=== PATIENT | male | born 1970 | race African-American/Black ===

== ENCOUNTER 2023-01-11 11:38 | Emergency (ER) | payer OTHER ==
--- OUTSIDE RECORDS SUMMARY | 2023-01-11 11:43 | XMS REPORT | Continuity of Care Document ---
:1970 Author Organization [facility] t Address [address] [place] [address] Care Team Providers Name Role Phone Unavailable Unavailable Unavailable Payers Payer Name Policy Type Policy Number Effective Date Expiration Date S ource Problems This patient has no known problems. Allergies, Adverse Reactions, Alerts Allergy Allergy Status Severity Reaction(s) Onset Inactive Treating Comm ents Source Name Type Date Date Clinician No Known DA Active U [facility] Allergie 01-29 Clear s 00:00: [place] 00 [facility] Medications This patient has no known medications. Procedures This patient has no known procedures. Results Test Description Test Time Test Comments Results Result Comments Source CBC W/AUTO DIFF 2019-02-02 07:52:00 Test Item Value Reference Range Interpretation Comme nts WHITE BLOOD CELL (test code = WBC) 14.88 x10 3/uL 4.5-11.0 H RED BLOOD CELL (test code = RBC) 4.91 x10 6/uL 4.00-5.60 N HEMOGLOBIN (test code = HGB) 13.0 g/dL 12.5-16.9 N HEMATOCRIT (test code = HCT) 41.7 % 37.5-50.7 N MEAN CELL VOLUME (test code = MCV) 84.9 fL 81.0-99.0 N MEAN CELL HGB (test code = MCH) 26.5 pg 27.0-33.0 L MEAN CELL HGB CONCETRATION (test code = MCHC) 31.2 g/dL 33.0-37. 0 L RED CELL DISTRIBUTION WIDTH CV (test code = RDW) 14.3 % 11.5- 14.5 N RED CELL DISTRIBUTION WIDTH SD (test code = RDW-SD) 44.1 fL 37 .0-54.0 N PLATELET COUNT (test code = PLT) 405 x10 3/uL 150-400 H MEAN PLATELET VOLUME (test code = MPV) 10.4 fL 7.0-9.0 H NEUTROPHIL % (test code = NT%) 72.4 % 56.0-77.0 N IMMATURE GRANULOCYTE % (test code = IG%) 0.7 % 0.0-2.0 N LYMPHOCYTE % (test code = LY%) 15.9 % 14.0-32.0 N MONOCYTE % (test code = MO%) 9.1 % 4.8-9.0 H EOSINOPHIL % (test code = EO%) 1.5 % 0.3-3.7 N BASOPHIL % (test code = BA%) 0.4 % 0.0-2.0 N NUCLEATED RBC % (test code = NRBC%) 0.0 % 0-0 N NEUTROPHIL # (test code = NT#) 10.75 x10 3/uL 2.0-7.6 H IMMATURE GRANULOCYTE # (test code = IG#) 0.11 x10 3/uL 0.00-0.03 H LYMPHOCYTE # (test code = LY#) 2.37 x10 3/uL 1.0-3.8 N MONOCYTE # (test code = MO#) 1.36 x10 3/uL 0.1-0.8 H EOSINOPHIL # (test code = EO#) 0.23 x10 3/uL 0.0-0.2 H BASOPHIL # (test code = BA#) 0.06 x10 3/uL 0.0-0.2 N NUCLEATED RBC # (test code = NRBC#) 0.00 x10 3/uL 0.0-0.1 N MANUAL DIFF REQUIRED (test code = MDIFF) NO COMMENTS: Daily while on HeparinCOAGULATION TIME [id number] 12:19:00 Test Item Value Reference Range Interpretation Comments COAGULATION TIME ACTIVATED (test 678 SECONDS 105-167 H code = ACT) COAGULATION TIME [id number] 12:19:00 Test Item Value Reference Range Interpretation Comments COAGULATION TIME ACTIVATED (test 177 SECONDS 105-167 H code = ACT) B-TYPE NATRIURETIC [id number] 10:01:00 Test Item Value Reference Range Interpretation Comments B-TYPE NATRIURETIC PEPTIDE (test 588.2 PG/ML 0-100 H code = BNP) PROTHROMBIN [id number] 06:18:00 Test Item Value Reference Range Interpretation Comments PROTHROMBIN TIME 15.6 SECONDS 9.3-12.9 H PATIENT (test code = PTP) INTERNATIONAL NORMAL 1.4 0.8-1.2 H TARGET INR BY RATIO (test code = INDICATIO N Indication INR) INR1. Prophylax is of venous thrombos is 2.0 - 3.0 (orthoped ic surgery), Proph ylaxis of venous throm bosis (other than hig h-risk surgery), Treat ment of Deep Vein Thrombosis/Pulm onary Embolism, Preve ntion of systemic emb olism - Tissue heart va lves, Acute Myocardia l Infarction (to prevent systemic emboli sm), Valvular heart disease, Atrial Fibrillation, Bileaflet mecha nical valve in aortic position.2. Mec hanical prosthetic valv es (high risk), 2. 5 - 3.5 Presence of Lup us Anticoagulant o r Antiphospholipi d Antibodies, Pre vention of systemic emb olism - Acute Myocardia l Infarction (to prevent recurrent infar ct). CBC W/AUTO [id number] 06:04:00 Test Item Value Reference Range Interpretation Comments WHITE BLOOD CELL (test code = 14.26 x10 3/uL 4.5-11.0 H WBC) RED BLOOD CELL (test code = 4.94 x10 6/uL 4.00-5.60 N RBC) HEMOGLOBIN (test code = HGB) 13.1 g/dL 12.5-16.9 N HEMATOCRIT (test code = HCT) 41.4 % 37.5-50.7 N MEAN CELL VOLUME (test code = 83.8 fL 81.0-99.0 N MCV) MEAN CELL HGB (test code = 26.5 pg 27.0-33.0 L MCH) MEAN CELL HGB CONCETRATION 31.6 g/dL 33.0-37.0 L (test code = MCHC) RED CELL DISTRIBUTION WIDTH CV 14.6 % 11.5-14.5 H (test code = RDW) RED CELL DISTRIBUTION WIDTH SD 44.4 fL 37.0-54.0 N (test code = RDW-SD) PLATELET COUNT (test code = 383 x10 3/uL 150-400 N PLT) MEAN PLATELET VOLUME (test 10.5 fL 7.0-9.0 H code = MPV) NEUTROPHIL % (test code = NT%) 75.5 % 56.0-77.0 N IMMATURE GRANULOCYTE % (test 0.6 % 0.0-2.0 N code = IG%) LYMPHOCYTE % (test code = LY%) 13.5 % 14.0-32.0 L MONOCYTE % (test code = MO%) 8.3 % 4.8-9.0 N EOSINOPHIL % (test code = EO%) 1.8 % 0.3-3.7 N BASOPHIL % (test code = BA%) 0.3 % 0.0-2.0 N NUCLEATED RBC % (test code = 0.0 % 0-0 N NRBC%) NEUTROPHIL # (test code = NT#) 10.78 x10 3/uL 2.0-7.6 H IMMATURE GRANULOCYTE # (test 0.08 x10 3/uL 0.00-0.03 H code = IG#) LYMPHOCYTE # (test code = LY#) 1.92 x10 3/uL 1.0-3.8 N MONOCYTE # (test code = MO#) 1.19 x10 3/uL 0.1-0.8 H EOSINOPHIL # (test code = EO#) 0.25 x10 3/uL 0.0-0.2 H BASOPHIL # (test code = BA#) 0.04 x10 3/uL 0.0-0.2 N NUCLEATED RBC # (test code = 0.00 x10 3/uL 0.0-0.1 N NRBC#) MANUAL DIFF REQUIRED (test NO code = MDIFF) COMMENTS: Daily while on HeparinCOMPREHENSIVE METABOLIC [id number] 06:04:00 Test Item Value Reference Range Interpretation Comments SODIUM (test code = NA) 135 mEq/L 134-147 N POTASSIUM (test code = 3.4 mEq/L 3.4-5.0 N K) CHLORIDE (test code = 98 mEq/L 100-108 L CL) CARBON DIOXIDE (test 28 mEq/L 21-33 N code = CO2) ANION GAP (test code = 12 0-20 N GAP) GLUCOSE (test code = 103 mg/dL 70-110 N GLU) BLOOD UREA NITROGEN 30 mg/dL 7-18 H (test code = BUN) GLOMERULAR FILTRATION 52.5 95-105 L Units of measure = RATE (test code = GFR) ml/mi n/1.73 m2 CREATININE (test code = 1.7 mg/dL 0.6-1.3 H CREAT) TOTAL PROTEIN (test 7.6 g/dL 6.4-8.2 code = PROT) ALBUMIN (test code = 2.00 g/dL 3.4-5.0 L ALB) CALCIUM (test code = 8.9 mg/dL 8.0-10.5 N CA) BILIRUBIN TOTAL (test 0.70 mg/dL 0.0-1.0 code = BILT) SGOT/AST (test code = 40 IUnit/L 15-37 H AST) SGPT/ALT (test code = 41 IUnit/L 15-65 N ALT) ALKALINE PHOSPHATASE 193 IUnit/L 20-125 H TOTAL (test code = ALKP) [id number] 06:04:00 Test Item Value Reference Range Interpretation Comments MAGNESIUM (test code = MAG) 2.50 mg/dL 1.8-2.4 H BASIC METABOLIC [id number] 18:52:00 Test Item Value Reference Range Interpretation Comments SODIUM (test code = 133 mEq/L 134-147 L NA) POTASSIUM (test code = 3.6 mEq/L 3.4-5.0 N SPECI MEN SLIGHTLY K) HEMOLYZED.Resul ts known to be adv ersely affected by hem olysis are: Potassium Magnesium LDH Phosphorus CHLORIDE (test code = 97 mEq/L 100-108 L CL) CARBON DIOXIDE (test 27 mEq/L 21-33 N code = CO2) ANION GAP (test code = 13 0-20 N GAP) GLUCOSE (test code = 94 mg/dL 70-110 N GLU) BLOOD UREA NITROGEN 32 mg/dL 7-18 H (test code = BUN) GLOMERULAR FILTRATION 43.6 95-105 L Units of measure = RATE (test code = GFR) ml/mi n/1.73 m2 CREATININE (test code 2.0 mg/dL 0.6-1.3 H = CREAT) CALCIUM (test code = 9.4 mg/dL 8.0-10.5 N CA) - DUP VEIN [id number] 08:40:00 Name: MARY FRAZIER [facility] [place] : 1970 Age/S: 48 / M [address] [place] [address] Unit #: [id number] Loc: [place] [address] Phys: Lucinda Kilgore MD Acct: [id number] Dis Date: Status:ADM IN PHONE #: [phone] Exam Date: 01/31/2019812 FAX #: [phone] Reason: DVT EXAMS: CPT CODE: [id number] [facility] VEIN JAVIER [id number] PROCEDURE: BILATERAL LOWER EXTREMITY VENOUS ULTRASOUND INDICATION:Chest pain, elevated d-dimer COMPARISON: None. TECHNIQUE: Sonographic evaluation of the bilateral lower extremity veins was performed using high resolution B-mode, pulse and color Doppler imaging. FINDINGS: RIGHT: The common femoral, femoral, popliteal and visualized calf veins are patent. Normal venous waveforms. The saphenofemoral junction is unremarkable. LEFT: The common femoral, femoral, popliteal and visualized calf veins are patent. Normal venous waveforms. The saphenofemoral junction is unremarkable. IMPRESSION: No deep venous thrombosis. SL:01 at 0840 Reported and signed by: Raymon Paulson M.D. CC: Lucinda Kilgore MD; Meghna Au MD Technologist: Shayy Haynes RDMS(Fransisco) Trnscb Date/Time: 01/31/2019 (0840) tMELODY Orig Print D/T: S: 01/31/2019 (0843) Probe: PAGE 1 Signed Report- XR CHEST 1 [id number] 07:53:00 FAX: Rolanda Phan MD [phone] [place]: St: ADM FAX: Meghna Au [phone] ------ [facility] [place] : 1970 Age/S: 48/M [address] [place] [address] Blvd Unit #: [id number] Loc: [address] [place] [address] Phys: Rolanda Ramirez MD Acct: [id number] Dis Date: Status: ADM IN PHONE #: [phone] Exam Date: 01/31/2019 075 FAX #: [phone] Reason: R/O PNA EXAMS: CPT CODE: [id number] XR CHEST 1V 86790 CHEST, SINGLE VIEW HISTORY: Myocardial infarction Comparison made to prior chest x-ray dated 01/30/19. FINDINGS: The lungs are clear. Heart is enlarged, stable. Pulmonary vascularity is stable. No new pleural fluid. IMPRESSION: Stable cardiomegaly. SL:01 at 0753 Reported and signed by: Raymon Paulson M.D. CC: Rolanda Ramirez MD; Meghna Au MD Technologist: RT Haider(R) Trnscrd Date/Time/By: 01/31/2019 (0753) : By: Beryl Orig Print D/T: S: 01/31/2019 (0756) PAGE 1 Signed ReportUR PROTEIN [id number] 07:14:00 Test Item Value Reference Range Interpretation Comments UR PROTEIN 25 mg/dL Note: C hange in RANDOM (test UNITS of MEASUR EMENT. code = PROTU) The Ref erence Range and Method Perf ormance specificationsh ave not been establishe d for this fluid. The test resultshould be correlated into the clinic al context forinterpretati on. UR PROTEIN 12HR 437 MG/12 HR Please note this is a 12 (test code = hour urine cayden ection. No [id number]) Reference Range s have been established for 12 hour urinecollection for this test. UR VOLUME (test 1750 mL code = VOL) UR PROTEIN [id number] 06:56:00 Test Item Value Reference Range Interpretation Comments UR PROTEIN RANDOM (test code = PROTU) mg/dL UR VOLUME (test code = VOL) 1750 mL BASIC METABOLIC [id number] 06:43:00 Test Item Value Reference Range Interpretation Comments SODIUM (test code = NA) 135 mEq/L 134-147 N POTASSIUM (test code = 3.6 mEq/L 3.4-5.0 N K) CHLORIDE (test code = 102 mEq/L 100-108 N CL) CARBON DIOXIDE (test 25 mEq/L 21-33 N code = CO2) ANION GAP (test code = 12 0-20 N GAP) GLUCOSE (test code = 100 mg/dL 70-110 N GLU) BLOOD UREA NITROGEN 27 mg/dL 7-18 H (test code = BUN) GLOMERULAR FILTRATION 46.2 95-105 L Units of measure = RATE (test code = GFR) ml/mi n/1.73 m2 CREATININE (test code = 1.9 mg/dL 0.6-1.3 H CREAT) CALCIUM (test code = 8.9 mg/dL 8.0-10.5 N CA) [id number] 06:43:00 Test Item Value Reference Range Interpretation Comments PHOSPHOROUS (test code = PHOS) 2.7 mg/dL 2.5-4.9 N [id number] 06:43:00 Test Item Value Reference Range Interpretation Comments MAGNESIUM (test code = MAG) 2.50 mg/dL 1.8-2.4 H CBC W/AUTO [id number] 06:28:00 Test Item Value Reference Range Interpretation Comments WHITE BLOOD CELL (test code = 18.18 x10 3/uL 4.5-11.0 H WBC) RED BLOOD CELL (test code = 4.79 x10 6/uL 4.00-5.60 N RBC) HEMOGLOBIN (test code = HGB) 12.8 g/dL 12.5-16.9 N HEMATOCRIT (test code = HCT) 40.0 % 37.5-50.7 N MEAN CELL VOLUME (test code = 83.5 fL 81.0-99.0 N MCV) MEAN CELL HGB (test code = 26.7 pg 27.0-33.0 L MCH) MEAN CELL HGB CONCETRATION 32.0 g/dL 33.0-37.0 L (test code = MCHC) RED CELL DISTRIBUTION WIDTH CV 14.6 % 11.5-14.5 H (test code = RDW) RED CELL DISTRIBUTION WIDTH SD 44.7 fL 37.0-54.0 N (test code = RDW-SD) PLATELET COUNT (test code = 357 x10 3/uL 150-400 N PLT) MEAN PLATELET VOLUME (test 10.8 fL 7.0-9.0 H code = MPV) NEUTROPHIL % (test code = NT%) 78.4 % 56.0-77.0 H IMMATURE GRANULOCYTE % (test 2.1 % 0.0-2.0 H code = IG%) LYMPHOCYTE % (test code = LY%) 10.6 % 14.0-32.0 L MONOCYTE % (test code = MO%) 8.1 % 4.8-9.0 N EOSINOPHIL % (test code = EO%) 0.6 % 0.3-3.7 N BASOPHIL % (test code = BA%) 0.2 % 0.0-2.0 N NUCLEATED RBC % (test code = 0.0 % 0-0 N NRBC%) NEUTROPHIL # (test code = NT#) 14.26 x10 3/uL 2.0-7.6 H IMMATURE GRANULOCYTE # (test 0.39 x10 3/uL 0.00-0.03 H code = IG#) LYMPHOCYTE # (test code = LY#) 1.92 x10 3/uL 1.0-3.8 N MONOCYTE # (test code = MO#) 1.47 x10 3/uL 0.1-0.8 H EOSINOPHIL # (test code = EO#) 0.10 x10 3/uL 0.0-0.2 N BASOPHIL # (test code = BA#) 0.04 x10 3/uL 0.0-0.2 N NUCLEATED RBC # (test code = 0.00 x10 3/uL 0.0-0.1 N NRBC#) MANUAL DIFF REQUIRED (test NO code = MDIFF) PROCALCITONIN (PCT)2019-01-30 18:23:00 Test Item Value Reference Range Interpretation Comments PROCALCITONIN (PCT) 1.37 ng/mL 0.00-0.05 H PROCALCI TONIN (PCT) (test code = PROCAL) NORMAL RANGE (ADULT): <0.05 NG/ML. * a concentration < 0.5 ng/mL represent s a low risk of severe sepsis and/or septic s hock.* a concentration > 2 ng/mL represents a hi gh risk of severe sepsi s and/or septic shock.Neverthel ess, concentrations <0.5 ng/mL do not ex clude aninfection, on account of localized in fections (withoutsystemi c signs) which can be as sociated with such lowconcentratio ns, or a systemic infect ion in its initialstag es (< 6 hours). Further more, increased procalcitoninca n occur without infecti on. PCT concentrations between 0.5and 2.0 ng/m L should be interpreted taking into account thepatient's hi story. It is recommend ed to retest PCT with in6-24 hours if any concentrations <2 ng/mL are obtained. URINALYSIS [id number] 16:16:00 Test Item Value Reference Range Interpretation Comments UA COLOR (test code = COLU) ANU YEL/STRAW A UA APPEARANCE (test code = APPU) CLOUDY CLEAR A UA GLUCOSE DIPSTICK (test code = NEGATIVE NEGATIVE DGLUU) UA BILIRUBIN DIPSTICK (test code NEGATIVE NEGATIVE = BILU) UA KETONE DIPSTICK (test code = NEGATIVE NEGATIVE KETU) UA SPECIFIC GRAVITY (test code = 1.031 1.005-1.030 H SGU) UA BLOOD DIPSTICK (test code = 1+ NEGATIVE A TIFFANIE) UA PH DIPSTICK (test code = DIANA) 5.0 5.0-7.0 N UA PROTEIN DIPSTICK (test code = 1+ NEGATIVE A PROU) UA UROBILINIOGEN DIPSTICK (test 4.0 mg/dL 0.2-1.0 A code = URO) UA NITRITE DIPSTICK (test code = NEGATIVE NEGATIVE HENRY) UA LEUKOCYTE ESTERASE DIPSTICK NEGATIVE NEGATIVE (test code = LEUU) UA WBC (test code = WBCU) 4-9 WBC/HPF 0-3 A UA RBC (test code = RBCU) 4-10 RBC/HPF 0-3 UA BACTERIA (test code = BACU) 1+ /HPF NONE SEEN A UA SQUAMOUS CELLS (test code = 0-5 /HPF NONE SEEN SQU) UA GRANULAR CAST (test code = 3-5 /LPF NONE GRANU) UA MUCUS (test code = MUCU) 2+ /LPF NONE SEEN A UA AMORPHOUS SEDIMENT (test code TRACE /HPF NONE = AMORU) UA CULT [id number] 16:16:00 Test Item Value Reference Range Interpretation Comments UA CULTURE NEEDED? NO, WBC<10 Culture Chk Criteria not met, (test code = Criteria Urine Culture UACULT) cancelled. - US RETROPERITONEAL [id number] 15:32:00 Name: MARY FRAZIER [facility] : 1970 Age/S: 48 / M [address] [place] [address] Bl Unit #: [id number] Loc: [place] [address] Phys: Lucinda Kilgore MD Acct: [id number] Dis Date: Status:ADM IN PHONE #: [phone] Exam Date: 01/30/2019 1457 FAX #: [phone] Reason: kideny EXAMS: CPT CODE: [id number] [place] RETROPERITONEAL COM 28425 PROCEDURE: RENAL ULTRASOUND INDICATION: Acute kidney injury. COMPARISON: None. TECHNIQUE: Sonographic evaluation of the kidneys and urinary bladder was performed. FINDINGS: KIDNEYS: The right kidney measures 9.8 cm in length. Normal contour and parenchymal echogenicity. There is no hydronephrosis, nephrolithiasis, mass lesion or perinephric collection. The left kidney measures 9.6 cm in length. Normal contour and parenchymal echogenicity. There is no hy dronephrosis, nephrolithiasis, mass lesion or perinephric collection. BLADDER: Almost empty but otherwise normal in appearance. IMPRESSION: Normal renal ultrasound. END REPORT [id number] at 1532 Reported and signed by: Gerard Casillas M.D. CC: Lucinda Kilgore MD; Meghna Au MD Technologist: Holli Chahal RDMS(OB)(BR) Trnscb Date/Time: 01/30/2019 (1532) t.SDR.RTB Orig Print D/T: S: 01/30/2019 (2288) Probe: PAGE 1 Signed ReportUR PROTEIN/CREATININE [id number] 15:26:00 Test Item Value Reference Range Interpretation Comments UR PROTEIN RANDOM 147 mg/dL No te: Change in (test code = UNITS of MEASUR EMENT. PROTU) The Refe rence Range and Metho d Performance specificationsh ave not been establishe d for this fluid. The test resultshould be correlated into the clinical contex t forinterpretati on. UR CREATININE 288.0 mg/dL The Reference Range and RANDOM (test code Method Per formance = CREATU) specificationsh ave not been establishe d for this fluid. The test resultshould be correlated into the clinical contex t forinterpretati on. PROTEIN/CREATININ 0.51 E RATIO (test code = P/CRATIO) [id number] 15:06:00 Test Item Value Reference Range Interpretation Comments D-DIMER (test 2178 ng/mlFEU <=500 HH THROMBOSIS A ND/OR code = PULMONARY EMBOL ISM AND THE DDIMER) CLINICAL CUT- O FF VALUE FOR EXCLUSION (500 ng/mL FEU) OF THESE CONDIT IONSIS VALIDATED BY E PATIENT SERVICE ASSOCIATE OF THE METHOD. A NEGATIVE D-DI BLAIRE RESULT WHEN COMBINED W ITH A CLINICALASSESSM ENT OF LOW PRETEST PROBABI LITY HAS BEEN SHOWN TO H AVEA HIGH NEGATIVE PREDIC TIVE VALUE OF DVT OR PE. D -DIMER VALUES >500 ng/ mL FEU ARE NOT DIAGNOSTIC FOR DVT, PEor DIC WITHOU T OTHER CONFIRMATORY TE STS AND APPROPRIATECLIN ICAL EUALUATIONS. DRUGS OF ABUSE SCREEN [id number] 15:01:00 Test Item Value Reference Range Interpretation Comments URN COCAINE (test code NEGATIVE NEGATIVE = COCAURN) URN CANNABINOIDS (test NEGATIVE NEGATIVE code = CANNABURN) URN AMPHETAMINE (test NEGATIVE NEGATIVE code = AMPHETURN) URN BARBITURATE (test NEGATIVE NEGATIVE code = BARBITURN) URN BENZODIAZEPINE NEGATIVE NEGATIVE Cut-off v alue:200 (test code = BENZOURN) ng/mL URN OPIATES (test code NEGATIVE NEGATIVE Cut-o ff value:2000 = OPIATURN) ng/mL URN PHENCYCLIDINE (PCP) NEGATIVE NEGATIVE Cuto ffs:Barbiturates (test code = PHENCURN) 200 ng/mLBenzodiaze pines 200 ng/mLTHC Cannabinoids 50 ng/mLOpiates(Mo rphine) 2000 ng/mLAmphe tamine 1000 ng/mLCocai ne 300 ng/mLPCP phency clidine 25 ng/mL Unconf irmed screening resul ts shouldnot be us ed for non-medical pur poses. - XR CHEST 1 [id number] 12:52:00 FAX: Rolanda Phan MD [phone] [place]: St: ADM FAX: Meghna Au [phone] ------ Name: MARY FRAZIER [facility] : 1970 Age/S: 48/M [address] [place] [address] Blvd Unit #: [id number] Loc: [address] [place] [address] Phys: Rolanda Ramirez MD Acct: [id number] Dis Date: Status: ADM IN PHONE #: [phone] Exam Date: 01/30/2019 1247 FAX #: [phone] Reason: BLOOD TINGED SPUTUM EXAMS: CPT CODE: [id number] CHEST 1 V 31124 1 VIEW CXR. PORTABLE EXAM 11:42 AM HISTORY: Blood tinged sputum. COMPARISON: 01/29/2019 chest x-ray. The lungs are clear with normal pulmonary vasculature. Cardiomediastinal silhouette normal. No pleural abnormality. Bony thorax intact. IMPRESSION: Normal exam. END OF IMPRESSION SL: [id number] at 1252 Reported and signed by: Gerard Casillas M.D. CC: Rolanda Ramirez MD; Meghna Au MD Technologist: RT Man(Blake) Trnscrd Date/Time/By: 01/30/2019 (7931) : By: Elissa Orig Print D/T: S: 01/30/2019 (4305) PAGE 1 Signed [id number] 2019-01-30 06:11:00 Test Item Value Reference Range Interpretation Comments HGBA1C% (test code = HGBA1C%) 5.9 %A1C 4.8-6.0 N COMPREHENSIVE METABOLIC [id number] 06:02:00 Test Item Value Reference Range Interpretation Comments SODIUM (test code = NA) 136 mEq/L 134-147 N POTASSIUM (test code = 4.2 mEq/L 3.4-5.0 N K) CHLORIDE (test code = 105 mEq/L 100-108 N CL) CARBON DIOXIDE (test 24 mEq/L 21-33 N code = CO2) ANION GAP (test code = 11 0-20 N GAP) GLUCOSE (test code = 115 mg/dL 70-110 H GLU) BLOOD UREA NITROGEN 22 mg/dL 7-18 H (test code = BUN) GLOMERULAR FILTRATION 56.3 95-105 L Units of measure = RATE (test code = GFR) ml/mi n/1.73 m2 CREATININE (test code = 1.6 mg/dL 0.6-1.3 H CREAT) TOTAL PROTEIN (test 6.6 g/dL 6.4-8.2 N code = PROT) ALBUMIN (test code = 2.00 g/dL 3.4-5.0 L ALB) CALCIUM (test code = 8.2 mg/dL 8.0-10.5 N CA) BILIRUBIN TOTAL (test 1.00 mg/dL 0.0-1.0 N code = BILT) SGOT/AST (test code = 27 IUnit/L 15-37 N AST) SGPT/ALT (test code = 32 IUnit/L 15-65 N ALT) ALKALINE PHOSPHATASE 162 IUnit/L 20-125 H TOTAL (test code = ALKP) LIPID PROFILE (CORONARY RISK)2019-01-30 06:02:00 Test Item Value Reference Range Interpretation Comments TRIGLYCERIDES (test 82 mg/dL 40-150 N code = TRIG) CHOLESTEROL (test 133 mg/dL <200 code = CHOL) CHOLESTEROL/HDL 4.93 RATIO 3.43-4.97 N RISK ASSOCIA FARHAT WITH RATIO (test code = CHOL/HDL RATIOS: RISK CHOLHDL) MALE FEMALE1/2 AVERAGE 3.43 3.27AVERAG E 4.97 4.442X AVERAGE 9.55 7.053X AVERAGE 23.39 11.04 NOTE THAT THE REFERENCE VALUE IS RELATEDTO RISK LEVELS RECOMMENDED BY THE NATL.HEART, MAYRA G, AND BLOOD INST. HDL CHOLESTEROL 27.0 mg/dL 32-72 L (test code = HDL) LIPOPROTEIN LDL 100 mg/dL 0-100 N <100 OPTIMAL 100-129 (test code = LDL) NEAR OPTIM AL/ABOVE [id number] 89 HIGH>ST=351 CAROLYN Y HIGH*Guidelines provided by the National Choles terol EducationProgra m Adult Treatment Panel III [id number] 06:02:00 Test Item Value Reference Range Interpretation Comments PHOSPHOROUS (test code = PHOS) 3.2 mg/dL 2.5-4.9 N [id number] 06:02:00 Test Item Value Reference Range Interpretation Comments MAGNESIUM (test code = MAG) 2.50 mg/dL 1.8-2.4 H T4 [id number] 06:02:00 Test Item Value Reference Range Interpretation Comments T4 FREE (test code = T4F) 1.1 ng/dL 0.77-1.61 N THYROID STIMULATING [id number] 06:02:00 Test Item Value Reference Range Interpretation Comments THYROID STIMULATING 0.55 0.42-5.47 N Results in HORMONE (test code = TSH) mi lli-International Units/mL CBC W/AUTO [id number] 05:38:00 Test Item Value Reference Range Interpretation Comments WHITE BLOOD CELL (test code = 19.04 x10 3/uL 4.5-11.0 H WBC) RED BLOOD CELL (test code = 4.41 x10 6/uL 4.00-5.60 N RBC) HEMOGLOBIN (test code = HGB) 11.8 g/dL 12.5-16.9 L HEMATOCRIT (test code = HCT) 37.8 % 37.5-50.7 N MEAN CELL VOLUME (test code = 85.7 fL 81.0-99.0 N MCV) MEAN CELL HGB (test code = 26.8 pg 27.0-33.0 L MCH) MEAN CELL HGB CONCETRATION 31.2 g/dL 33.0-37.0 L (test code = MCHC) RED CELL DISTRIBUTION WIDTH CV 14.7 % 11.5-14.5 H (test code = RDW) RED CELL DISTRIBUTION WIDTH SD 46.4 fL 37.0-54.0 N (test code = RDW-SD) PLATELET COUNT (test code = 296 x10 3/uL 150-400 N PLT) MEAN PLATELET VOLUME (test 10.6 fL 7.0-9.0 H code = MPV) NEUTROPHIL % (test code = NT%) 78.3 % 56.0-77.0 H IMMATURE GRANULOCYTE % (test 0.8 % 0.0-2.0 N code = IG%) LYMPHOCYTE % (test code = LY%) 10.9 % 14.0-32.0 L MONOCYTE % (test code = MO%) 9.6 % 4.8-9.0 H EOSINOPHIL % (test code = EO%) 0.1 % 0.3-3.7 L BASOPHIL % (test code = BA%) 0.3 % 0.0-2.0 N NUCLEATED RBC % (test code = 0.0 % 0-0 N NRBC%) NEUTROPHIL # (test code = NT#) 14.91 x10 3/uL 2.0-7.6 H IMMATURE GRANULOCYTE # (test 0.16 x10 3/uL 0.00-0.03 H code = IG#) LYMPHOCYTE # (test code = LY#) 2.07 x10 3/uL 1.0-3.8 N MONOCYTE # (test code = MO#) 1.83 x10 3/uL 0.1-0.8 H EOSINOPHIL # (test code = EO#) 0.02 x10 3/uL 0.0-0.2 N BASOPHIL # (test code = BA#) 0.05 x10 3/uL 0.0-0.2 N NUCLEATED RBC # (test code = 0.00 x10 3/uL 0.0-0.1 N NRBC#) MANUAL DIFF REQUIRED (test NO code = MDIFF) COMMENTS: To be done morning of Heart CathVITAMIN [id number] 23:55:00 Test Item Value Reference Range Interpretation Comments VITAMIN D 25-HYDROXY (test code = 10.1 ng/mL 30-100 L VITD25) CPK-MB [id number] 22:46:00 Test Item Value Reference Range Interpretation Comments CREATINE KINASE 108 35-232 N Result is in (CK) (test code = INTERNATIO NAL CK) UNITS/LITER CKMB (test code = < 1.0 ng/mL 0-5.0 N CUT OFF:>5 ng/mL is CKMBT) suggested as be ing consistent with AMI. RELATIVE % INDEX 0.9 % 0.0-2.5 N *CK-MB INT ERPRETATION* (test code = REL%) NORMAL: < 5 ng/ml & <2.5% INDEX ABNORMAL : >5 ng/ml & >2.5% I NDEX COLE ZONE: >5 ng/ml & <2.5% INDEX - SUGGEST CPK ISOENZYME BY ELECTROPHORESIS *PLEASE NOTE* A LOW TOT AL CK MAY CALCULATE TO A FALSELY ELEVATED INDEX. B-TYPE NATRIURETIC [id number] 19:27:00 Test Item Value Reference Range Interpretation Comments B-TYPE NATRIURETIC PEPTIDE (test 865.0 PG/ML 0-100 H code = BNP) CPK-MB [id number] 18:59:00 Test Item Value Reference Range Interpretation Comments CREATINE KINASE 134 35-232 N Result is in (CK) (test code = INTERNATIO NAL CK) UNITS/LITER CKMB (test code = < 1.0 ng/mL 0-5.0 N CUT OFF:>5 ng/mL is CKMBT) suggested as be ing consistent with AMI. RELATIVE % INDEX 0.7 % 0.0-2.5 N *CK-MB INT ERPRETATION* (test code = REL%) NORMAL: < 5 ng/ml & <2.5% INDEX ABNORMAL: >5 ng/ml & >2.5% INDEX G LAUREN ZONE: >5 ng/ml & <2.5 % INDEX - SUGGEST CPK IS OENZYME BY ELECTROPHORE SIS *PLEASE NOTE* A LOW TOTAL CK MAY CA LCULATE TO A FALSELY EL EVATED INDEX. HGBA1C%2019-01-29 18:58:00 Test Item Value Reference Range Interpretation Comments HGBA1C% (test code = HGBA1C%) 6.0 %A1C 4.8-6.0 N URINALYSIS [id number] 15:01:00 Test Item Value Reference Range Interpretation Comments UA COLOR (test code = COLU) ANU YEL/STRAW A UA APPEARANCE (test code = APPU) SL CLOUDY CLEAR UA GLUCOSE DIPSTICK (test code = NEGATIVE NEGATIVE DGLUU) UA BILIRUBIN DIPSTICK (test code NEGATIVE NEGATIVE = BILU) UA KETONE DIPSTICK (test code = NEGATIVE NEGATIVE KETU) UA SPECIFIC GRAVITY (test code = 1.026 1.005-1.030 N SGU) UA BLOOD DIPSTICK (test code = NEGATIVE NEGATIVE TIFFANIE) UA PH DIPSTICK (test code = DIANA) 5.0 5.0-7.0 N UA PROTEIN DIPSTICK (test code = NEGATIVE NEGATIVE PROU) UA UROBILINIOGEN DIPSTICK (test 4.0 mg/dL 0.2-1.0 A code = URO) UA NITRITE DIPSTICK (test code = NEGATIVE NEGATIVE HENRY) UA LEUKOCYTE ESTERASE DIPSTICK NEGATIVE NEGATIVE (test code = LEUU) UA WBC (test code = WBCU) 0-3 WBC/HPF 0-3 UA RBC (test code = RBCU) 0-3 RBC/HPF 0-3 UA BACTERIA (test code = BACU) TRACE /HPF NONE SEEN UA SQUAMOUS CELLS (test code = 0-5 /HPF NONE SEEN SQU) UA HYALINE CAST (test code = 11-20 /LPF NONE SEEN HYALU) UA MUCUS (test code = MUCU) 4+ /LPF NONE SEEN A UA CULT [id number] 15:01:00 Test Item Value Reference Range Interpretation Comments UA CULTURE NEEDED? NO, WBC<10 Culture Chk Criteria not met, (test code = Criteria Urine Culture UACULT) cancelled. BASIC METABOLIC [id number] 12:59:00 Test Item Value Reference Range Interpretation Comments SODIUM (test code = NA) 138 mEq/L 134-147 N POTASSIUM (test code = 4.1 mEq/L 3.4-5.0 N K) CHLORIDE (test code = 103 mEq/L 100-108 N CL) CARBON DIOXIDE (test 30 mEq/L 21-33 N code = CO2) ANION GAP (test code = 9 0-20 N GAP) GLUCOSE (test code = 120 mg/dL 70-110 H GLU) BLOOD UREA NITROGEN 22 mg/dL 7-18 H (test code = BUN) GLOMERULAR FILTRATION 52.5 95-105 L Units of measure = RATE (test code = GFR) ml/mi n/1.73 m2 CREATININE (test code = 1.7 mg/dL 0.6-1.3 H CREAT) CALCIUM (test code = 8.8 mg/dL 8.0-10.5 N CA) COMMENTS: 3 troponins total (including troponin done in ED)[id number] 12:59:00 Test Item Value Reference Range Interpretation Comments MAGNESIUM (test code = MAG) 2.40 mg/dL 1.8-2.4 N COMMENTS: 3 troponins total (including troponin done in ED)[id number] 12:59:00 Test Item Value Reference Range Interpretation Comments TROPONIN-I 2.600 ng/mL 0.000-0.045 HH Negative: <= 0 .045 Positive: (test code = >= 0.046 Correl ation with TROPI) serial results, other cardiac markers andclin ical findings is necessary to determine the clinicalsignifi cance of this result. Results using different metho dologies should not be c omparedto one another as shai titative results may shorty y by method. COMMENTS: 3 troponins total (including troponin done in ED)THROMBOPLASTIN TIME [id number] 12:46:00 Test Item Value Reference Range Interpretation Comments THROMBOPLASTIN TIME 42.0 Seconds 25.0-39.5 H Therape utic Range: PARTIAL (test code = 61.8-83 .8 Sec PTT) Effective 12/29/2013 COMMENTS: DRAW PTT 6 HOURS AFTER INITIATION OF [id number] 05:51:00 Test Item Value Reference Range Interpretation Comments TROPONIN-I 3.340 ng/mL 0.000-0.045 HH Negative: <= 0 .045 Positive: (test code = >= 0.046 Correl ation with TROPI) serial results, other cardiac markers andclin ical findings is necessary to determine the clinicalsignifi cance of this result. Results using different metho dologies should not be c omparedto one another as shai titative results may shorty y by method. COMMENTS: 3 troponins total (including troponin done in ED)PROTHROMBIN TIME 2019-01-29 04:52:00 Test Item Value Reference Range Interpretation Comments PROTHROMBIN TIME 17.8 SECONDS 9.3-12.9 H PATIENT (test code = PTP) INTERNATIONAL NORMAL 1.6 0.8-1.2 H TARGET INR BY RATIO (test code = INDICATIO N Indication INR) INR1. Prophylax is of venous thrombos is 2.0 - 3.0 (orthoped ic surgery), Proph ylaxis of venous throm bosis (other than hig h-risk surgery), Treat ment of Deep Vein Thrombosis/Pulm onary Embolism, Preve ntion of systemic emb olism - Tissue heart va lves, Acute Myocardia l Infarction (to prevent systemic emboli sm), Valvular heart disease, Atrial Fibrillation, Bileaflet mecha nical valve in aortic position.2. Mec hanical prosthetic valv es (high risk), 2. 5 - 3.5 Presence of Lup us Anticoagulant o r Antiphospholipi d Antibodies, Pre vention of systemic emb olism - Acute Myocardia l Infarction (to prevent recurrent infar ct). THROMBOPLASTIN TIME [id number] 04:52:00 Test Item Value Reference Range Interpretation Comments THROMBOPLASTIN TIME 118.3 Seconds 25.0-39.5 H Therap eutic PARTIAL (test code = Range: 61.8-83.8 PTT) Sec Effecti ve 12/29/2013 LIPOPROTEIN [id number] 04:18:00 Test Item Value Reference Range Interpretation Comments LIPOPROTEIN LDL 142 mg/dL 0-100 H <100 OPTIMAL 100-129 NEAR (test code = LDL) OPTIMAL/AB OVE [id number] HIGH>JX=828 CAROLYN Y HIGH*Guidelines provided by the National Cholesterol EducationProgra m Adult Treatment Panel III [id number] 03:52:00 Test Item Value Reference Range Interpretation Comments TROPONIN-I 3.970 ng/mL 0.000-0.045 HH Negative: <= 0 .045 Positive: (test code = >= 0.046 Correl ation with TROPI) serial results, other cardiac markers andclin ical findings is necessary to determine the clinicalsignifi cance of this result. Results using different metho dologies should not be c omparedto one another as shai titative results may shorty y by method. CBC W/AUTO [id number] 03:37:00 Test Item Value Reference Range Interpretation Comments WHITE BLOOD CELL (test code = 18.54 x10 3/uL 4.5-11.0 H WBC) RED BLOOD CELL (test code = 5.16 x10 6/uL 4.00-5.60 N RBC) HEMOGLOBIN (test code = HGB) 13.9 g/dL 12.5-16.9 N HEMATOCRIT (test code = HCT) 43.8 % 37.5-50.7 N MEAN CELL VOLUME (test code = 84.9 fL 81.0-99.0 N MCV) MEAN CELL HGB (test code = 26.9 pg 27.0-33.0 L MCH) MEAN CELL HGB CONCETRATION 31.7 g/dL 33.0-37.0 L (test code = MCHC) RED CELL DISTRIBUTION WIDTH CV 14.5 % 11.5-14.5 N (test code = RDW) RED CELL DISTRIBUTION WIDTH SD 45.2 fL 37.0-54.0 N (test code = RDW-SD) PLATELET COUNT (test code = 297 x10 3/uL 150-400 N PLT) MEAN PLATELET VOLUME (test 11.1 fL 7.0-9.0 H code = MPV) NEUTROPHIL % (test code = NT%) 73.9 % 56.0-77.0 N IMMATURE GRANULOCYTE % (test 0.8 % 0.0-2.0 N code = IG%) LYMPHOCYTE % (test code = LY%) 16.0 % 14.0-32.0 N MONOCYTE % (test code = MO%) 8.8 % 4.8-9.0 N EOSINOPHIL % (test code = EO%) 0.2 % 0.3-3.7 L BASOPHIL % (test code = BA%) 0.3 % 0.0-2.0 N NUCLEATED RBC % (test code = 0.0 % 0-0 N NRBC%) NEUTROPHIL # (test code = NT#) 13.68 x10 3/uL 2.0-7.6 H IMMATURE GRANULOCYTE # (test 0.15 x10 3/uL 0.00-0.03 H code = IG#) LYMPHOCYTE # (test code = LY#) 2.97 x10 3/uL 1.0-3.8 N MONOCYTE # (test code = MO#) 1.64 x10 3/uL 0.1-0.8 H EOSINOPHIL # (test code = EO#) 0.04 x10 3/uL 0.0-0.2 N BASOPHIL # (test code = BA#) 0.06 x10 3/uL 0.0-0.2 N NUCLEATED RBC # (test code = 0.00 x10 3/uL 0.0-0.1 N NRBC#) MANUAL DIFF REQUIRED (test NO code = MDIFF) - XR CHEST 1 [id number] 03:24:00 FAX: Wesley Connor MD [phone] [place]: St: PRE Name: MARY FRAZIER [facility] : 1970 Age/S: 48/M [address] [place] [address] Unit #: [id number] Loc: [address] [address] Phys[id number] Dis Date: Status: PRE ER PHONE #: [phone] Exam Date: 01/29/2019312 FAX #: [phone] Reason: Chest Pain EXAMS: CPT CODE: [id number] XR CHEST 1 V [id number] EXAM: CR, XR chest oneview: 01/29/2019 HISTORY: Chest Pain TECHNIQUE: 1 view of the chest. COMPARISON: None available. FINDINGS: Trachea is midline. Heart is normal in size. Pulmonary vascularity is unremarkable. There is no airspace consolidation, pleural effusion or pneumothorax. No significant osseous abnormalities are seen. IMPRESSION: No acute cardiopulmonary disease seen. SL: [JSYED-H] at 0324 Reported and signed by: Migel Donovan M.D. CC: Wesley Ramon MD Technologist: RT Michelle(R) Trnscrd Date/Time/By: 01/29/2019 (0324) : By: [email or web address] Maggie houston D/T: S: 01/29/2019 (032) PAGE 1 Signed Report- XR CHEST 1 [id number] 02:12:00 Patient Name: MARY FRAZIER Unit No: [id number] EXAMS: CPT CODE: [id number] XR CHEST 1 V [id number] EXAM: CR, XR chest one view: 01/29/2019 HISTORY: CHEST PAIN TECHNIQUE: 1 view of the chest. COMPARISON: None available. FINDINGS: Trachea is midline. Heart is normal in size. Pulmonary vascularity is unremarka ble. There is no airspace consolidation, pleural effusion or pneumothorax. No significant osseous abnormalities are seen. IMPRESSION: No acute cardiopulmonary disease seen. SL: [JSYED-H] at 0212 Reported and signed by: Migel Donovan M.D. CC: Chhaya Hinton MD Technologist: Jeimy Marion Trnscrbd D/ (211) [email or web address] OrigPrint D/T: S: 01/29/2019 (021) [facility] NAME: MARY FRAZIER Radiology Department PHYS: Chhaya Cuadra [address] : 1970 AGE: 48 SEX: M [place], [place] [address]BZRV NO: [id number] LOC: F.ERS PHONE #: [phone] EXAM DATE: 01/29/2019 STATUS: REG ER FAX #: RAD NO: Page 1 Signed ReportLIPID PROFILE (CORONARY RISK)2019-01-29 02:08:00 Test Item Value Reference Range Interpretation Comments TRIGLYCERIDES (test 84 mg/dL Normal < 150 code = TRIG) Borderline high 150 - 199 High 200 - 499 Very High > 500 CHOLESTEROL (test code 194 mg/dL 120-200 N = CHOL) HDL CHOLESTEROL (test 31 mg/dL HDL <4 0 = Low HDL code = HDL) Cholesterolhdl >60 = High HDL CholesterolSour ce: NCEP-ATPIII LIPOPROTEIN LDL (test 147 mg/dL H <130 (DESIRABLE) code = LDL) 130-159 (BORDER LINE) >=160 (HIGH) CHEMISTRY 7 [id number] 02:00:00 Test Item Value Reference Range Interpretation Comments SODIUM (test code = NA) 136 mEq/L 135-145 N POTASSIUM (test code = K) 4.4 mEq/L 3.5-5.0 N CHLORIDE (test code = CL) 99 mEq/L 100-115 L CARBON DIOXIDE (test code = CO2) 29 mEq/L 22-31 N ANION GAP (test code = GAP) 12.80 10-20 N GLUCOSE (test code = GLU) 120 mg/dL 65-110 H BLOOD UREA NITROGEN (test code = 22 mg/dL 7-18 H BUN) GLOMERULAR FILTRATION RATE (test 46 ml/min >60 L code = GFR) CREATININE (test code = CREAT) 1.9 mg/dL 0.7-1.3 H CALCIUM (test code = CA) 9.2 mg/dL 8.4-10.2 N CPK-MB [id number] 02:00:00 Test Item Value Reference Range Interpretation Comments CREATINE KINASE (CK) (test code = 189 Units/L 26-192 N CK) CKMB (test code = CKMBT) 1.9 ng/mL 0-3.6 N RELATIVE % INDEX (test code = 1.005 0.0-5.0 N REL%) [id number] 02:00:00 Test Item Value Reference Range Interpretation Comments TROPONIN-I (test 3.276 ng/mL <0.056 HH RESULTS [place] LED TO code = TROPI) OBIEREAD BACK & CONFIRMED? Y F.LAB.LGL0 12/19 0200 TROPONIN I [id number] 01:35:00 Test Item Value Reference Range Interpretation Comments TROPONIN I RAPID (test code = 3.84 ng/mL 0.00-0.08 H TROPIRAP) CBC W/AUTO [id number] 01:29:00 Test Item Value Reference Range Interpretation Comments WHITE BLOOD CELL (test code = WBC) 19.5 K/mm3 4.5-11.2 H RED BLOOD CELL (test code = RBC) 5.33 M/mm3 3.42-5.20 H HEMOGLOBIN (test code = HGB) 14.1 g/dL 10.2-14.9 N HEMATOCRIT (test code = HCT) 45.5 % 31.3-44.8 H MEAN CELL VOLUME (test code = MCV) 85 fL 81-95 N MEAN CELL HGB (test code = MCH) 26.5 pg 27-34 L MEAN CELL HGB CONCETRATION (test 31.0 gm/dL 32-35 L code = MCHC) RED CELL DISTRIBUTION WIDTH (test 14.8 % 11.8-14.8 N code = RDW) PLATELET COUNT (test code = PLT) 310 K/mm3 135-380 N IMMATURE PLATELET FRACTION (test 0.0 % 0.0-10.8 N code = IPF) MEAN PLATELET VOLUME (test code = 10.5 fl 9.1-12.7 N MPV) NEUTROPHIL % (test code = NT%) 76.6 % 51.5-79.7 N LYMPHOCYTE % (test code = LY%) 13.5 % 14-40 L MONOCYTE % (test code = MO%) 8.8 % 4.0-10.2 N EOSINOPHIL % (test code = EO%) 0.2 % 0-4.1 N BASOPHIL % (test code = BA%) 0.3 % 0.1-0.7 N NEUTROPHIL # (test code = NT#) 14.9 K/mm3 LYMPHOCYTE # (test code = LY#) 2.6 K/mm3 MONOCYTE # (test code = MO#) 1.7 K/mm3 EOSINOPHIL # (test code = EO#) 0.04 K/mm3 BASOPHIL # (test code = BA#) 0.1 K/mm3 RBC MORPHOLOGY REQUIRED (test code NORMAL NORMAL = RBCM) PLATELET MORPHOLOGY REQUIRED (test NORMAL NORMAL code = PLTMR)
[2023-01-11 12:44] LABS: Protime INR 1.36
--- NOTE | 2023-01-11 12:56 | ER ---
Nurse's Notes [facility] Name: Ata Majano Age: 52 yrs Sex: Male : 1970 Arrival Date: 01/11/2023 Time: 11:42 Bed DX3 Private MD: Diagnosis: Subtherapeutic anticoagulation Presentation: 01/11 11:51 Chief complaint: Patient states: "I had my INR level drawn last week and it was high ss (4.1) and I need to get it checked and regulated again. [facility]'t [facility] because they took a week to give me my results and I'm from out of town." Pt was told by his PCP to stop taking it the past 2 days. Coronavirus screen: Client denies travel out of the [place] in the last 14 days. Ebola Screen: Patient denies exposure to infectious person. Patient denies travel to an Ebola-affected area in the 21 days before illness onset. Initial Sepsis Screen: Does the patient meet any 2 criteria? No. Patient's initial sepsis screen is negative. Does the patient have a suspected source of infection? No. Patient's initial sepsis screen is negative. Risk Assessment: Do you want to hurt yourself or someone else? Patient reports no desire to harm self or others. Onset of symptoms is unknown. 11:51 Method Of Arrival: Ambulatory ss 11:51 Acuity: MELLO 4 ss Historical: - Allergies: 11:52 No Known Allergies; ss - Home Meds: 11:52 warfarin 5 mg Oral tab 1 tab T, Th, Sat [Active]; warfarin 10 mg Oral tab MWF [Active]; ss - PSHx: 11:52 mechanical heart valve; ss - Immunization history:: Client reports receiving the 2nd dose of the Covid vaccine. - Social history:: Smoking status: Patient denies any tobacco usage or history of. Screenin:15 [facility] ED Fall Risk Assessment (Adult) History of falling in the last 3 months, ss including since admission No falls in past 3 months (0 pts). Abuse screen: Denies threats or abuse. Denies injuries from another. Nutritional screening: No deficits noted. Tuberculosis screening: Never had TB. Assessment: 12:15 General: Appears in no apparent distress. comfortable, Behavior is calm, cooperative, ss Denies fever, feeling ill, fatigue, chills. Pain: Denies pain. Neuro: Level of Consciousness is awake, alert, obeys commands. Cardiovascular: Capillary refill < 3 seconds is brisk in bilateral fingers. Respiratory: Airway is patent Respiratory effort is even, unlabored, Respiratory pattern is regular, symmetrical. Derm: Skin is intact, is healthy with good turgor. Musculoskeletal: Circulation, motion, and sensation intact. Range of motion: intact in all extremities, Swelling absent. Vital Signs: 11:51 BP 123 / 92; Pulse 85; Resp 16; Temp 97.9(TE); Pulse Ox 100% on R/A; Weight 102.06 kg; ss Height 5 ft. 10 in. (177.80 cm); Pain 0/10; 11:51 Body Mass Index 32.28 (102.06 kg, 177.80 cm) ss ED Course: 11:42 Patient arrived in ED. rg4 11:52 Triage completed. ss 11:52 Arm band placed on right wrist. ss 12:00 Josiah Bullock PA is PHCP. [facility] 12:00 Dominik Granado MD is Attending Physician. [facility] 12:15 Patient has correct armband on for positive identification. ss 12:46 Deena Hernandez RN is Primary Nurse. ss 13:14 No provider procedures requiring assistance completed. Patient did not have IV access ss during this emergency room visit. Administered Medications: No medications were administered Medication: 12:15 VIS not applicable for this client. ss Outcome: 12:55 Discharge ordered by . [facility] 13:14 Discharged to home ambulatory. ss 13:14 Condition: good 13:14 Discharge instructions given to patient, Instructed on discharge instructions, follow up and referral plans. Demonstrated understanding of instructions, follow-up care. 13:15 Patient left the ED. ss Signatures: Josiah Bullock PA PA jmm Smirch, Shelby, JOSE RN Genia Luna rg4 Corrections: (The following items were deleted from the chart) 11:54 11:51 Chief complaint: Patient states: "I had my INR level drawn last week and it was ss high (4.1) and I need to get it checked and regulated again. [facility] because they took a week to give me my results and I'm from out of town." ss
--- NOTE | 2023-01-11 12:56 | EDPHYS ---
Physician Documentation [facility] Name: Ata Majano Age: 52 yrs Sex: Male : 1970 Arrival Date: 01/11/2023 Time: 11:42 Bed DX3 Private MD: ED Physician Dominik Granado HPI: 01/11 11:58 This 52 yrs old Black Male presents to ER via Ambulatory with complaints of Needs Blood [facility] Work. 11:58 Is a 52-year-old male presents emerged department requesting a INR test. Patient lives [facility] out of town. Patient denies any chest pain, shortness of breath, abdominal pain, vomiting, etc.. Historical: - Allergies: 11:52 No Known Allergies; ss - Home Meds: 11:52 warfarin 5 mg Oral tab 1 tab T, Th, Sat [Active]; warfarin 10 mg Oral tab MWF [Active]; ss - PSHx: 11:52 mechanical heart valve; ss - Immunization history:: Client reports receiving the 2nd dose of the Covid vaccine. - Social history:: Smoking status: Patient denies any tobacco usage or history of. ROS: 11:58 Constitutional: Negative for fever, chills, and weight loss, Cardiovascular: Negative jm for chest pain, palpitations, and edema, Respiratory: Negative for shortness of breath, cough, wheezing, and pleuritic chest pain. 11:58 All other systems are negative. Exam: 11:58 Constitutional: This is a well developed, well nourished patient who is awake, alert, jmm and in no acute distress. Head/Face: atraumatic. Eyes: EOMI, no conjunctival erythema appreciated ENT: Moist Mucus Membranes Neck: Trachea midline, Supple Chest/axilla: Normal chest wall appearance and motion. Cardiovascular: Regular rate and rhythm. No edema appreciated Respiratory: Normal respirations, no respiratory distress appreciated Abdomen/GI: Non distended Back: Normal ROM Skin: General appearance color normal MS/ Extremity: Moves all extremities, no obvious deformities appreciated, no edema noted to the lower extremities Neuro: Awake and alert Psych: Behavior is normal, Mood is normal, Patient is cooperative and pleasant Vital Signs: 11:51 BP 123 / 92; Pulse 85; Resp 16; Temp 97.9(TE); Pulse Ox 100% on R/A; Weight 102.06 kg; ss Height 5 ft. 10 in. (177.80 cm); Pain 0/10; 11:51 Body Mass Index 32.28 (102.06 kg, 177.80 cm) ss MDM: 12:04 Patient medically screened. [facility] 12:54 Data reviewed: vital signs, nurses notes. juan manuel 19:16 Counseling: I had a detailed discussion with the patient and/or guardian regarding: the [facility] historical points, exam findings, and any diagnostic results supporting the discharge/admit diagnosis, lab results, the need for outpatient follow up, to return to the emergency department if symptoms worsen or persist or if there are any questions or concerns that arise at home. 01/11 11:57 Order name: PT-INR; Complete Time: 12:48 ss Administered Medications: No medications were administered Disposition Summary: 01/11/23 12:55 Discharge Ordered Location: Home [facility] Condition: Stable [facility] Diagnosis - Subtherapeutic anticoagulation [facility] Followup: jm - With: Private Physician - When: 2 - 3 days - Reason: Recheck today's complaints, Continuance of care, Re-evaluation by your physician Forms: - Medication Reconciliation Form [facility] - Thank You Letter jm - Antibiotic Education [facility] - Prescription Opioid Use [facility] Signatures: Dispatcher [employer] Dominik Adam MD MD cha Mickail, Joel, PA PA jmm Smirch, Shelby, RN RN ss
[2023-01-11 13:24] VITALS: BP 123/92; TEMP 97.9; O2SAT 100
== END 2023-01-11 13:15 | disposition home or self-care (01) ==
LOC: ER 11:38
DX: D68.8 Other specified coagulation defects (principal); Z95.4 Presence of other heart-valve replacement; Z79.01 Long term (current) use of anticoagulants
CPT/HCPCS: 36415; 85610; 99281

== ENCOUNTER 2023-02-07 09:36 | Emergency (ER) | payer OTHER ==
--- OUTSIDE RECORDS SUMMARY | 2023-02-07 09:41 | XMS REPORT | Continuity of Care Document ---
:1970 Author Organization [facility] t Address [address] [facility] [address] [place] [address] Care Team Providers Name Role Phone Unavailable Unavailable Unavailable Payers Payer Name Policy Type Policy Number Effective Date Expiration Date S ource Problems This patient has no known problems. Allergies, Adverse Reactions, Alerts Allergy Allergy Status Severity Reaction(s) Onset Inactive Treating Comm ents Source Name Type Date Date Clinician No Known DA Active U [facility] Allergie 01-29 Clear s 00:00: Leonard 00 [facility] Medications This patient has no known medications. [...] NO COMMENTS: Daily while on HeparinCOAGULATION TIME [id number] 12:19:00 Test Item Value Reference Range Interpretation Comments COAGULATION TIME ACTIVATED (test 678 SECONDS 105-167 H code = ACT) COAGULATION TIME [id number] 12:19:00 Test Item Value Reference Range Interpretation Comments COAGULATION TIME ACTIVATED (test 177 SECONDS 105-167 H code = ACT) B-TYPE NATRIURETIC [id number] 10:01:00 Test Item Value Reference Range Interpretation Comments B-TYPE NATRIURETIC PEPTIDE (test 588.2 PG/ML 0-100 H code = BNP) PROTHROMBIN [id number] 06:18:00 Test Item Value Reference Range Interpretation [...] (to prevent recurrent infar ct). CBC W/AUTO [id number] 06:04:00 Test Item Value Reference Range Interpretation [...] MDIFF) COMMENTS: Daily while on HeparinCOMPREHENSIVE METABOLIC [id number] 06:04:00 Test Item Value Reference Range Interpretation [...] 20-125 H TOTAL (test code = ALKP) [id number] 06:04:00 Test Item Value Reference Range Interpretation Comments MAGNESIUM (test code = MAG) 2.50 mg/dL 1.8-2.4 H BASIC METABOLIC [id number] 18:52:00 Test Item Value Reference Range Interpretation [...] = 9.4 mg/dL 8.0-10.5 N CA) - LUZ VEIN [id number] 08:40:00 Name: MARY FRAZIER [facility] [place] : 1970 Age/S: 48 / M [address] [place] [address] Unit #: [id number] Loc: [place] [address] Phys: Lucinda Kilgore MD Acct: [id number] Dis Date: Status: ADM IN PHONE #: [phone] Exam Date: 01/31/2019812 FAX #: [phone] Reason: DVT EXAMS: CPTCODE: [id number] [facility] VE[address] JAVIER [id number] PROCEDURE: BILATERAL LOWER EXTREMITY VENOUS ULTRASOUND INDICATION: Chest pain, elevated d-dimer COMPARISON: None. TECHNIQUE: Sonographic [...] PAGE 1 Signed Report- XR CHEST 1 [id number] 07:53:00 FAX: Rolanda Phan MD [phone] [place]: St: ADM FAX: Meghna Au [phone] ------ [facility] : 1970 Age/S: 48/M [address] [place] [address] Blvd Unit #: [id number] Loc: [id number] [place] [address] Phys: Rolanda Ramirez MD Acct: [id number] Dis Date: Status: ADM IN PHONE #: [phone] Date: 01/31/2019 0750 FAX #: [phone] Reason: R/O PNA EXAMS: CPT CODE: [id number] XR CHEST 1 V 51985 CHEST, SINGLE VIEW HISTORY: Myocardial infarction Comparison [...] 01/31/2019 (0756) PAGE 1 Signed ReportUR PROTEIN [id number] 07:14:00 Test Item Value Reference Range Interpretation [...] code = hour urine cayden ection. No [id number]) Reference Range s have been established for 12 hour urinecollection for this test. UR VOLUME (test 1750 mL code = VOL) UR PROTEIN [id number] 06:56:00 Test Item Value Reference Range Interpretation Comments UR PROTEIN RANDOM (test code = PROTU) mg/dL UR VOLUME (test code = VOL) 1750 mL BASIC METABOLIC [id number] 06:43:00 Test Item Value Reference Range Interpretation [...] code = 8.9 mg/dL 8.0-10.5 N CA) [id number] 06:43:00 Test Item Value Reference Range Interpretation Comments PHOSPHOROUS (test code = PHOS) 2.7 mg/dL 2.5-4.9 N [id number] 06:43:00 Test Item Value Reference Range Interpretation Comments MAGNESIUM (test code = MAG) 2.50 mg/dL 1.8-2.4 H CBC W/AUTO [id number] 06:28:00 Test Item Value Reference Range Interpretation [...] any concentrations <2 ng/mL are obtained. URINALYSIS [id number] 16:16:00 Test Item Value Reference Range Interpretation [...] TRACE /HPF NONE = AMORU) UA CULT [id number] 16:16:00 Test Item Value Reference Range Interpretation Comments UA CULTURE NEEDED? NO, WBC<10 Culture Chk Criteria not met, (test code = Criteria Urine Culture UACULT) cancelled. - US RETROPERITONEAL [id number] 15:32:00 Name: MARY FRAZIER [facility] : 1970 Age/S: 48 / M [address] [place] [address] Unit #: [id number] Loc: [place] [address] Phys: Lucinda Kilgore MD Acct: [id number] Dis Date: Status: ADM IN PHONE #: [phone] Exam Date: 01/30/2019 1458 FAX #: [phone] Reason: kideny EXAMS: CPT CODE: [id number] [place] [id number] PROCEDURE: RENAL ULTRASOUND INDICATION: Acute kidneyinjury. COMPARISON: None. TECHNIQUE: Sonographic evaluation of the kidneys and urinary bladder was performed. FINDINGS: KIDNEYS: The right kidney measures 9.8 cm in length. Normal contour and parenchymal echogenicity. There is no hydronephrosis, nephrolithiasis, mass lesion or perinephric collection. The left kidney measures 9.6 cm in length. Normal contour and parenchymal echogenicity. There is no h ydronephrosis, nephrolithiasis, mass lesion or perinephric collection. BLADDER: Almost empty but otherwise normal in appearance. IMPRESSION: Normal renal ultrasound. END REPORT [id number] at 1532 Reported and signed by: Gerard Casillas M.D. CC: Lucinda Kilgore MD; Meghna Au MD Technologist: Holli Chahal RDMS(OB)(BR) Trnscb Date/Time: 01/30/2019 (1532Lisa Bee.RTB Orig Print D/T: S: 01/30/2019 (1535) Probe: PAGE 1 Signed ReportUR PROTEIN/CREATININE [id number] 15:26:00 Test Item Value Reference Range Interpretation [...] 0.51 E RATIO (test code = P/CRATIO) [id number] 15:06:00 Test Item Value Reference Range Interpretation Comments D-DIMER (test 2178 ng/mlFEU <=500 HH THROMBOSIS A ND/OR code = PULMONARY EMBOL ISM AND THE DDIMER) CLINICAL CUT- O FF VALUE FOR EXCLUSION (500 ng/mL FEU) OF THESE CONDIT IONSIS VALIDATED BY E SANDWICH PEDDLER OF THE METHOD. A NEGATIVE D-DI BLAIRE RESULT WHEN COMBINED W ITH A CLINICALASSESSM ENT OF LOW PRETEST PROBABI LITY HAS BEEN SHOWN TO H AVEA HIGH NEGATIVE PREDIC TIVE VALUE OF DVT OR PE. D -DIMER VALUES >500 ng/ mL FEU ARE NOT DIAGNOSTIC FOR DVT, PEor DIC WITHOU T OTHER CONFIRMATORY TE STS AND APPROPRIATECLIN ICAL EUALUATIONS. DRUGS OF ABUSE SCREEN [id number] 15:01:00 Test Item Value Reference Range Interpretation [...] non-medical pur poses. - XR CHEST 1 [id number] 12:52:00 FAX: Rolanda Phan MD [phone] [place]: St: ADM FAX: Meghna Auin [phone] ------ Name: MARY FRAZIER [facility] : 1970 Age/S: 48/M [address] [place] [address] Bl Unit #: [id number] Loc: [address] [place] [address] Phys: Rolanda Ramirez MD Acct: [id number] Dis Date: Status: ADM IN PHONE #: [phone] Date: 01/30/2019 1247 FAX #: [phone] Reason: BLOOD TINGED SPUTUM EXAMS: CPT CODE: [id number] XR CHEST 1 V 11823 1 VIEW CXR. PORTABLE EXAM 11:42 AM HISTORY: Blood tinged sputum. COMPARISON: 01/29/2019 chest x-ray. The lungs are clear with normal pulmonary vasculature. Cardiomediastinal silhouette normal. No pleural abnormality. Bony thorax intact. IMPRESSION: Normal exam. END OF IMPRESSION SL: [id number] at 1252 Reported and signed by: Gerard Casillas M.D. CC: Rolanda Ramirez MD;Meghna Au MD Technologist: Niharika Berger RT(R) Trnscrd Date/Time/By: 01/30/2019 (7215): By: Elissa Orig Print D/T: S: 01/30/2019 (0471) PAGE 1 Signed [id number] 06:11:00 Test Item Value Reference Range Interpretation Comments HGBA1C% (test code = HGBA1C%) 5.9 %A1C 4.8-6.0 N COMPREHENSIVE METABOLIC [id number] 06:02:00 Test Item Value Reference Range Interpretation [...] (test code = LDL) NEAR OPTIM AL/ABOVE [id number] 89 HIGH>BD=193 CAROLYN Y HIGH*Guidelines provided by the National Choles terol EducationProgra m Adult Treatment Panel III [id number] 06:02:00 Test Item Value Reference Range Interpretation Comments PHOSPHOROUS (test code = PHOS) 3.2 mg/dL 2.5-4.9 N [id number] 06:02:00 Test Item Value Reference Range Interpretation Comments MAGNESIUM (test code = MAG) 2.50 mg/dL 1.8-2.4 H T4 [id number] 06:02:00 Test Item Value Reference Range Interpretation Comments T4 FREE (test code = T4F) 1.1 ng/dL 0.77-1.61 N THYROID STIMULATING [id number] 06:02:00 Test Item Value Reference Range Interpretation Comments THYROID STIMULATING 0.55 0.42-5.47 N Results in HORMONE (test code = TSH) mi lli-International Units/mL CBC W/AUTO [id number] 05:38:00 Test Item Value Reference Range Interpretation [...] be done morning of Heart CathVITAMIN D [id number] 23:55:00 Test Item Value Reference Range Interpretation Comments VITAMIN D 25-HYDROXY (test code = 10.1 ng/mL 30-100 L VITD25) CPK-MB [id number] 22:46:00 Test Item Value Reference Range Interpretation [...] & <2.5 % INDEX - SUGGEST CPK ISO ENZYME BY ELECTROPHORESIS *PLEASE NOTE* A LOW TOT AL CK MAY CALCULATE TO A FALSELY ELEVATED INDEX. B-TYPE NATRIURETIC [id number] 19:27:00 Test Item Value Reference Range Interpretation Comments B-TYPE NATRIURETIC PEPTIDE (test 865.0 PG/ML 0-100 H code = BNP) CPK-MB [id number] 18:59:00 Test Item Value Reference Range Interpretation [...] & <2.5 % INDEX - SUGGEST CPK ISO ENZYME BY ELECTROPHORESIS *PLEASE NOTE* A LOW TOT AL CK MAY CALCULATE TO A FALSELY ELEVATED INDEX. [id number]%2019-01-29 18:58:00 Test Item Value Reference Range Interpretation Comments HGBA1C% (test code = HGBA1C%) 6.0 %A1C 4.8-6.0 N URINALYSIS [id number] 15:01:00 Test Item Value Reference Range Interpretation [...] 4+ /LPF NONE SEEN A UA CULT [id number] 15:01:00 Test Item Value Reference Range Interpretation Comments UA CULTURE NEEDED? NO, WBC<10 Culture Chk Criteria not met, (test code = Criteria Urine Culture UACULT) cancelled. BASIC METABOLIC [id number] 12:59:00 Test Item Value Reference Range Interpretation [...] 3 troponins total (including troponin done in ED)[id number] 12:59:00 Test Item Value Reference Range Interpretation Comments MAGNESIUM (test code = MAG) 2.40 mg/dL 1.8-2.4 N COMMENTS: 3 troponins total (including troponin done in ED)[id number] 12:59:00 Test Item Value Reference Range Interpretation [...] total (including troponin done in ED)THROMBOPLASTIN TIME [id number] 12:46:00 Test Item Value Reference Range Interpretation Comments THROMBOPLASTIN TIME 42.0 Seconds 25.0-39.5 H Therape utic Range: PARTIAL (test code = 61.8-83 .8 Sec PTT) Effective 12/29/2013 COMMENTS: DRAW PTT 6 HOURS AFTER INITIATION OF [id number] 05:51:00 Test Item Value Reference Range Interpretation [...] (to prevent recurrent infar ct). THROMBOPLASTIN TIME [id number] 04:52:00 Test Item Value Reference Range Interpretation Comments THROMBOPLASTIN TIME 118.3 Seconds 25.0-39.5 H Therap eutic PARTIAL (test code = Range: 61.8-83.8 PTT) Sec Effect victoriano 12/29/2013 LIPOPROTEIN [id number] 04:18:00 Test Item Value Reference Range Interpretation Comments LIPOPROTEIN LDL 142 mg/dL 0-100 H <100 OPTIMAL 100-129 NEAR (test code = LDL) OPTIMAL/AB OVE [id number] 89 HIGH>QR=432 CAROLYN Y HIGH*Guidelines provided by the National Cholesterol EducationProgra m Adult Treatment Panel III [id number] 03:52:00 Test Item Value Reference Range Interpretation Comments TROPONIN-I 3.970 ng/mL 0.000-0.045 HH Negative: <= 0.045 (test code = Positive: >= 0. 046 TROPI) Correlation wit h serial results, other cardiac markers andclin ical findings is necessary to determine the clinicalsignifi cance of this result. Results using different metho dologies should not be c omparedto one another as shai titative results may shorty y by method. CBC W/AUTO [id number] 03:37:00 Test Item Value Reference Range Interpretation [...] code = MDIFF) - XR CHEST 1 [id number] 03:24:00 FAX: Wesley Connor MD [phone] [place]: St: PRE Name: MARY FRAZIER [facility] : 1970 Age/S: 48/M [address] [place] [address] Bl Unit #: [id number] Loc: [address] [address] Phys: Wesley Ramon [facility] [id number] Dis Date: Status: PRE ER PHONE #: [phone] Exam Date: 01/29/2019312 FAX #: [phone] Reason: Chest Pain EXAMS: CPT CODE: [id number] XR CHEST 1 V 21943 EXAM: CR, XR chest one view: 01/29/2019 HISTORY: Chest Pain TECHNIQUE: 1 view [...] Date/Time/By: 01/29/2019 (0324) : By: [email or web address] Maggie P rosemarie D/T: S: 01/29/2019 (0327) PAGE 1 Signed Report- XR CHEST 1 [id number] 02:12:00 Patient Name: MARY FRAZIER Unit No: [id number] EXAMS: CPT CODE: [id number] XR CHEST 1 V 47035 EXAM: CR, XR chest one view: 01/29/2019 [...] [email or web address] OrigPrint D/T: S: 01/29/2019 (021) [facility] NAME: MARY FRAZIER Radiology Department PHYS: Chhaya Cuadra [address] : 1970 AGE: 48 SEX: M [place], [place] [address]GLQD NO: [id number] LOC: F.ERS PHONE #: [phone] EXAM DATE: 01/29/2019 STATUS: REG ER FAX #: [phone] RAD NO: Page 1 Signed ReportLIPID PROFILE [...] 130-159 (BORDER LINE) >=160 (HIGH) CHEMISTRY 7 [id number] 02:00:00 Test Item Value Reference Range Interpretation [...] = CA) 9.2 mg/dL 8.4-10.2 N CPK-MB [id number] 02:00:00 Test Item Value Reference Range Interpretation Comments CREATINE KINASE (CK) (test code = 189 Units/L 26-192 N CK) CKMB (test code = CKMBT) 1.9 ng/mL 0-3.6 N RELATIVE % INDEX (test code = 1.005 0.0-5.0 N REL%) [id number] 02:00:00 Test Item Value Reference Range Interpretation Comments TROPONIN-I (test 3.276 ng/mL <0.056 HH RESULTS [place] LED TO code = TROPI) OBIEREAD BACK & CONFIRMED? Y F.LAB.LGL0 12/19 0200 TROPONIN I [id number] 01:35:00 Test Item Value Reference Range Interpretation Comments TROPONIN I RAPID (test code = 3.84 ng/mL 0.00-0.08 H TROPIRAP) CBC W/AUTO [id number] 01:29:00 Test Item Value Reference Range Interpretation [...]
[2023-02-07 11:10] LABS: Protime INR 4.6
[2023-02-07 12:14] VITALS: TEMP 97.9; O2SAT 100
[2023-02-07 12:15] VITALS: BP 118/87
--- NOTE | 2023-02-21 16:19 | ER ---
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 [facility]. Take warfarin. Coronavirus screen: Vaccine status: Patient reports receiving the 2nd dose of the covid vaccine. Ebola Screen: No symptoms or risks identified at this time. Initial Sepsis Screen: Does the patient meet any 2 criteria? No. Patient's initial sepsis screen is negative. Does the patient have a suspected source of infection? No. Patient's initial sepsis screen is negative. Risk Assessment: Do you want to hurt yourself or someone else? Patient reports no desire to harm self or others. Onset of symptoms was February 07, 2023. 10:01 Method Of Arrival: Ambulatory ph 10:01 Acuity: MELLO 3 ph Historical: - Allergies: 10:03 No Known Allergies; ph - Home Meds: 10:03 warfarin 10 mg Oral tab MWF [Active]; warfarin 5 mg Oral tab 1 tab T, Th, Sat [Active]; ph - PSHx: 10:03 Mechanical Heart Valve; ph - Immunization history:: Adult Immunizations unknown. - Social history:: Smoking status: Patient denies any tobacco usage or history of. Screenin:35 [facility] ED Fall Risk Assessment (Adult) Score/Fall Risk Level 0 - 2 = Low Risk hb Oriented to surroundings, Maintained a safe environment, Educated pt \T\ family on fall prevention, incl call for assistance when getting out of bed. Abuse screen: Denies threats or abuse. Denies injuries from another. Nutritional screening: No deficits noted. Tuberculosis screening: No symptoms or risk factors identified. Assessment: 10:35 General: Appears in no apparent distress. Behavior is calm, cooperative. Pain: Denies hb pain. Neuro: Level of Consciousness is awake, alert, obeys commands, Oriented to person, place, time, situation. Cardiovascular: Patient's skin is warm and dry. Respiratory: Respiratory effort is even, unlabored, Respiratory pattern is regular, symmetrical. GI: No signs and/or symptoms were reported involving the gastrointestinal system. : No signs and/or symptoms were reported regarding the genitourinary system. EENT: No signs and/or symptoms were reported regarding the EENT system. Derm: Skin is pink, warm \T\ dry. Musculoskeletal: No signs and/or symptoms reported regarding the musculoskeletal system. 11:45 Reassessment: Patient appears in no apparent distress at this time. Patient and/or hb family updated on plan of care and expected duration. Pain level reassessed. Patient is alert, oriented x 3, equal unlabored respirations, skin warm/dry/pink. Vital Signs: 10:01 Pulse 69; Resp 18; Temp 97.9; Pulse Ox 100% on R/A; Weight 104.33 kg; Height 5 ft. 10 ph in. ; 10:04 BP 118 / 87; ph 10:01 Body Mass Index 33.00 (104.33 kg, 177.8 cm) ph ED Course: 09:37 Patient arrived in ED. jj6 09:42 Josiah Bullock PA is PHCP. [facility] 09:42 Bobby Kuo MD is Attending Physician. [facility] 10:03 Triage completed. ph 10:04 Arm band placed on Patient placed in an exam room. ph 10:35 Patient has correct armband on for positive identification. hb 10:35 No provider procedures requiring assistance completed. Patient did not have IV access hb during this emergency room visit. 10:57 Shanika Godoy, RN is Primary Nurse. hb 11:10 Notified Nurse Practitioner and/or Physician Dementia Program Director of a critical lab result(s), INR aa5 4.60. Administered Medications: No medications were administered Medication: 10:35 VIS not applicable for this client. hb Outcome: 11:43 Discharge ordered by . [facility] 12:04 Discharged to home ambulatory. hb 12:04 Condition: stable 12:04 Discharge instructions given to patient, Instructed on discharge instructions, follow up and referral plans. medication usage, Demonstrated understanding of instructions, follow-up care, medications. 12:04 Patient left the ED. hb Signatures: Josiah Bullock PA PA jmm Calderon, Audri, RN RN aa5 Niharika Manuel RN RN Shanika Godoy, JOSE RN Anum Escalera jj6 Corrections: (The following items were deleted from the chart) 11:10 11:10 Notified Nurse Practitioner and/or Physician Dementia Program Director of a critical lab aa5 result(s), INR 4.0 aa5
--- NOTE | 2023-02-21 16:19 | EDPHYS ---
Physician Documentation [facility] Name: Ata Majano Age: 52 yrs Sex: Male : 1970 Arrival Date: 02/07/2023 Time: 09:37 Bed 15 Private MD: ED Physician Bobby Kuo HPI: 02/07 10:01 This 52 yrs old Black Male presents to ER via Ambulatory with complaints of Abnormal jmm Lab Results. 10:01 This is a 52 year old male that presents to the ED requesting to have his INR drawn. jmm patient takes warfarin and is from out of town. Denies any bleeding, chest pain. . Historical: - Allergies: 10:03 No Known Allergies; ph - Home Meds: 10:03 warfarin 10 mg Oral tab MWF [Active]; warfarin 5 mg Oral tab 1 tab T, Th, Sat [Active]; ph - PSHx: 10:03 Mechanical Heart Valve; ph - Immunization history:: Adult Immunizations unknown. - Social history:: Smoking status: Patient denies any tobacco usage or history of. ROS: 10:01 Constitutional: Negative for fever, chills, and weight loss, Cardiovascular: Negative jmm for chest pain, palpitations, and edema, Respiratory: Negative for shortness of breath, cough, wheezing, and pleuritic chest pain. 10:01 All other systems are negative. Exam: 10:01 Constitutional: This is a well developed, well nourished patient who is awake, alert, jmm and in no acute distress. Head/Face: atraumatic. Eyes: EOMI, no conjunctival erythema appreciated ENT: Moist Mucus Membranes Neck: Trachea midline, Supple Chest/axilla: Normal chest wall appearance and motion. Cardiovascular: Regular rate and rhythm. No edema appreciated Respiratory: Normal respirations, no respiratory distress appreciated Abdomen/GI: Non distended Back: Normal ROM Skin: General appearance color normal MS/ Extremity: Moves all extremities, no obvious deformities appreciated, no edema noted to the lower extremities Neuro: Awake and alert Psych: Behavior is normal, Mood is normal, Patient is cooperative and pleasant Vital Signs: 10:01 Pulse 69; Resp 18; Temp 97.9; Pulse Ox 100% on R/A; Weight 104.33 kg; Height 5 ft. 10 ph in. ; 10:04 BP 118 / 87; ph 10:01 Body Mass Index 33.00 (104.33 kg, 177.8 cm) ph MDM: 10:01 Patient medically screened. [facility] 14:16 Differential diagnosis: Coumadin toxi ty, subtherapeutic inr. Data reviewed: vital jmm signs, nurses notes. Counseling: I had a detailed discussion with the patient and/or guardian regarding: the historical points, exam findings, and any diagnostic results supporting the discharge/admit diagnosis, lab results, the need for outpatient follow up, to return to the emergency department if symptoms worsen or persist or if there are any questions or concerns that arise at home. ED course: Patient will consult his pcp due to elevated inr. Patient advised to return to the ED if any signs of bleeding occurs. Patient understood and agrees with the plan of care. . 02/07 10:02 Order name: PT-INR; Complete Time: 11:12 jmm Administered Medications: No medications were administered Disposition: 16:03 Co-signature as Attending Physician, Bobby Kuo MD I reviewed the patient's care rn provided by the Advanced Practice Provider and agree with the diagnosis and treatment plan. Disposition Summary: 02/07/23 11:43 Discharge Ordered Location: Home [facility] Condition: Stable [facility] Diagnosis - Poisoning by anticoagulants, accidental (unintentional) jm Followup: [facility] - With: Private Physician - When: 2 - 3 days - Reason: Recheck today's complaints, Continuance of care, Re-evaluation by your physician Discharge Instructions: - Discharge Summary Sheet jm - Warfarin Information [facility] Forms: - Medication Reconciliation Form [facility] - Thank You Letter jm - Antibiotic Education jm - Prescription Opioid Use [facility] Signatures: Dispatcher [employer] EDMS Josiah Bullock PA PA jmm Nieto, Roman, MD MD rn Hall, Patricia, RN RN ph
== END 2023-02-07 12:04 | disposition home or self-care (01) ==
LOC: ER 09:36
DX: R79.89 Other specified abnormal findings of blood chemistry (principal); T45.511A Poisoning by anticoagulants, accidental (unintentional), initial encounter; Z95.4 Presence of other heart-valve replacement; Z79.01 Long term (current) use of anticoagulants
CPT/HCPCS: 36415; 85610; 99281

== ENCOUNTER 2023-03-28 07:39 | Emergency (ER) | payer OTHER ==
--- OUTSIDE RECORDS SUMMARY | 2023-03-28 07:43 | XMS REPORT | Continuity of Care Document ---
:1970 Author Organization [facility] t Address [address] [place] [address] Care Team Providers Name Role Phone Unavailable Unavailable Unavailable Payers Payer Name Policy Type Policy Number Effective Date Expiration Date S ource Problems This patient has no known problems. Allergies, Adverse Reactions, Alerts Allergy Allergy Status Severity Reaction(s) Onset Inactive Treating Comm ents Source Name Type Date Date Clinician No Known DA Active U [facility] Allergie 01-29 Clear s 00:00: Leonard 00 [facility] Medications This patient has no known [...] NO COMMENTS: Daily while on HeparinCOAGULATION TIME [id number] 12:19:00 Test Item Value Reference Range Interpretation Comments COAGULATION TIME ACTIVATED (test 678 SECONDS 105-167 H code = ACT) COAGULATION TIME [id number] 12:19:00 Test Item Value Reference Range Interpretation Comments COAGULATION TIME ACTIVATED (test 177 SECONDS 105-167 H code = ACT) B-TYPE NATRIURETIC [id number] 10:01:00 Test Item Value Reference Range Interpretation Comments B-TYPE NATRIURETIC PEPTIDE (test 588.2 PG/ML 0-100 H code = BNP) PROTHROMBIN [id number] 06:18:00 Test Item Value Reference Range Interpretation [...] (to prevent recurrent infar ct). CBC W/AUTO [id number] 06:04:00 Test Item Value Reference Range Interpretation [...] MDIFF) COMMENTS: Daily while on HeparinCOMPREHENSIVE METABOLIC [id number] 06:04:00 Test Item Value Reference Range Interpretation [...] 20-125 H TOTAL (test code = ALKP) [id number] 06:04:00 Test Item Value Reference Range Interpretation Comments MAGNESIUM (test code = MAG) 2.50 mg/dL 1.8-2.4 H BASIC METABOLIC [id number] 18:52:00 Test Item Value Reference Range Interpretation [...] mg/dL 8.0-10.5 N CA) - LUZ VEIN [id number] 08:40:00 Name: MARY FRAZIER [facility] [place] : 1970 Age/S: 48 / M [address] [place] [address] Unit #: [id number] Loc: [place] [address] Phys: Lucinda Kilgore MD Acct: [id number] Dis Date: Status: ADM IN PHONE #: [phone] Exam Date: 01/31/2019812 FAX #: [phone] Reason: DVT EXAMS: CPTCODE: [id number] [facility] VEIN JAVIER [id number] PROCEDURE: BILATERAL LOWER EXTREMITY VENOUS ULTRASOUND INDICATION: [...] PAGE 1 Signed Report- XR CHEST 1 [id number] 07:53:00 FAX: Rolanda Phan MD [phone] [place]: St: ADM FAX: Meghna Au [phone] ------ [facility]: [facility] 1970 Age/S: 48/M [address] [place] [address] Blvd Unit #: [id number] Loc: [id number] [place] [address] Phys: Rolanda Ramirez MD Acct: [id number] Dis Date: Status: ADM IN PHONE #: [phone] Date: 01/31/2019 0750 FAX #: [phone] Reason: R/O PNA EXAMS: CPT CODE: [id number] XR CHEST 1 V 86850 CHEST, SINGLE VIEW HISTORY: Myocardial infarction Comparison [...] 01/31/2019 (0756) PAGE 1 Signed ReportUR PROTEIN [id number] 07:14:00 Test Item Value Reference Range Interpretation [...] code = hour urine cayden ection. No HGBF50Y) Reference Range s have been established for 12 hour urinecollection for this test. UR VOLUME (test 1750 mL code = VOL) UR PROTEIN [id number] 06:56:00 Test Item Value Reference Range Interpretation Comments UR PROTEIN RANDOM (test code = PROTU) mg/dL UR VOLUME (test code = VOL) 1750 mL BASIC METABOLIC [id number] 06:43:00 Test Item Value Reference Range Interpretation [...] code = 8.9 mg/dL 8.0-10.5 N CA) [id number] 06:43:00 Test Item Value Reference Range Interpretation Comments PHOSPHOROUS (test code = PHOS) 2.7 mg/dL 2.5-4.9 N [id number] 06:43:00 Test Item Value Reference Range Interpretation Comments MAGNESIUM (test code = MAG) 2.50 mg/dL 1.8-2.4 H CBC W/AUTO [id number] 06:28:00 Test Item Value Reference Range Interpretation [...] any concentrations <2 ng/mL are obtained. URINALYSIS [id number] 16:16:00 Test Item Value Reference Range Interpretation [...] TRACE /HPF NONE = AMORU) UA CULT [id number] 16:16:00 Test Item Value Reference Range Interpretation Comments UA CULTURE NEEDED? NO, WBC<10 Culture Chk Criteria not met, (test code = Criteria Urine Culture UACULT) cancelled. - US RETROPERITONEAL [id number] 15:32:00 Name: MARY FRAZIER [facility] : 1970 Age/S: 48 / M [address] [place] [address] Unit #: [id number] Loc: [place] [address] Phys: Lucinda Kilgore MD Acct: [id number] Dis Date: Status: ADM IN PHONE #: [phone] Exam Date: 01/30/2019 1452 FAX #: [phone] Reason: kideny EXAMS: CPT CODE: [id number] [place] RETROPERITONEAL COM [id number] PROCEDURE: RENAL ULTRASOUND INDICATION: Acute kidneyinjury. COMPARISON: [...] appearance. IMPRESSION: Normal renal ultrasound. END REPORT [id number] at 1532 Reported and signed by: Gerard Casillas M.D. CC: Lucinda Kilgore MD; Meghna Au MD Technologist: Holli Chahal RDMS(OB)(BR) Trnscb Date/Time: 01/30/2019 (1532Lisa Bee.RTB Orig Print D/T: S: 01/30/2019 (1535) Probe: PAGE 1 Signed ReportUR PROTEIN/CREATININE [id number] 15:26:00 Test Item Value Reference Range Interpretation [...] 0.51 E RATIO (test code = P/CRATIO) [id number] 15:06:00 Test Item Value Reference Range Interpretation Comments D-DIMER (test 2178 ng/mlFEU <=500 HH THROMBOSIS A ND/OR code = PULMONARY EMBOL ISM AND THE DDIMER) CLINICAL CUT- O FF VALUE FOR EXCLUSION (500 ng/mL FEU) OF THESE CONDIT IONSIS VALIDATED BY E HAM SAWYER OF THE METHOD. A NEGATIVE D-DI BLAIRE RESULT WHEN COMBINED W ITH A CLINICALASSESSM ENT OF LOW PRETEST PROBABI LITY HAS BEEN SHOWN TO H AVEA HIGH NEGATIVE PREDIC TIVE VALUE OF DVT OR PE. D -DIMER VALUES >500 ng/ mL FEU ARE NOT DIAGNOSTIC FOR DVT, PEor DIC WITHOU T OTHER CONFIRMATORY TE STS AND APPROPRIATECLIN ICAL EUALUATIONS. DRUGS OF ABUSE SCREEN [id number] 15:01:00 Test Item Value Reference Range Interpretation [...] non-medical pur poses. - XR CHEST 1 [id number] 12:52:00 FAX: Rolanda Phan MD [phone] [place]: St: ADM FAX: Meghna Auin [phone] ------ Name: MARY FRAZIER [facility] : 1970 Age/S: 48/M [address] [place] [address] Bl Unit #: [id number] Loc: [address] [place] [address] Phys: Rolanda Ramirez MD Acct: [id number] Dis Date: Status: ADM IN PHONE #: [phone] Date: 01/30/2019 1247 FAX #: [phone] Reason: BLOOD TINGED SPUTUM EXAMS: CPT CODE: [id number] XR CHEST 1 V 23545 1 VIEW CXR. PORTABLE EXAM 11:42 AM HISTORY: Blood tinged sputum. COMPARISON: 01/29/2019 chest x-ray. The lungs are clear with normal pulmonary vasculature. Cardiomediastinal silhouette normal. No pleural abnormality. Bony thorax intact. IMPRESSION: Normal exam. END OF IMPRESSION SL: [id number] at 1252 Reported and signed by: Gerard Casillas M.D. CC: Rolanda Ramirez MD;Meghna Au MD Technologist: Niharika Berger RT(R) Trnscrd Date/Time/By: 01/30/2019 (3953): By: Elissa Orig Print D/T: S: 01/30/2019 (0054) PAGE 1 Signed [id number] 06:11:00 Test Item Value Reference Range Interpretation Comments HGBA1C% (test code = HGBA1C%) 5.9 %A1C 4.8-6.0 N COMPREHENSIVE METABOLIC [id number] 06:02:00 Test Item Value Reference Range Interpretation [...] (test code = LDL) NEAR OPTIM AL/ABOVE [id number] 89 HIGH>KD=203 CAROLYN Y HIGH*Guidelines provided by the National Choles terol EducationProgra m Adult Treatment Panel III [id number] 06:02:00 Test Item Value Reference Range Interpretation Comments PHOSPHOROUS (test code = PHOS) 3.2 mg/dL 2.5-4.9 N [id number] 06:02:00 Test Item Value Reference Range Interpretation Comments MAGNESIUM (test code = MAG) 2.50 mg/dL 1.8-2.4 H T4 [id number] 06:02:00 Test Item Value Reference Range Interpretation Comments T4 FREE (test code = T4F) 1.1 ng/dL 0.77-1.61 N THYROID STIMULATING [id number] 06:02:00 Test Item Value Reference Range Interpretation Comments THYROID STIMULATING 0.55 0.42-5.47 N Results in HORMONE (test code = TSH) mi lli-International Units/mL CBC W/AUTO [id number] 05:38:00 Test Item Value Reference Range Interpretation [...] be done morning of Heart CathVITAMIN D [id number] 23:55:00 Test Item Value Reference Range Interpretation Comments VITAMIN D 25-HYDROXY (test code = 10.1 ng/mL 30-100 L VITD25) CPK-MB [id number] 22:46:00 Test Item Value Reference Range Interpretation [...] TO A FALSELY ELEVATED INDEX. B-TYPE NATRIURETIC [id number] 19:27:00 Test Item Value Reference Range Interpretation Comments B-TYPE NATRIURETIC PEPTIDE (test 865.0 PG/ML 0-100 H code = BNP) CPK-MB [id number] 18:59:00 Test Item Value Reference Range Interpretation [...] = HGBA1C%) 6.0 %A1C 4.8-6.0 N URINALYSIS [id number] 15:01:00 Test Item Value Reference Range Interpretation [...] 4+ /LPF NONE SEEN A UA CULT [id number] 15:01:00 Test Item Value Reference Range Interpretation Comments UA CULTURE NEEDED? NO, WBC<10 Culture Chk Criteria not met, (test code = Criteria Urine Culture UACULT) cancelled. BASIC METABOLIC [id number] 12:59:00 Test Item Value Reference Range Interpretation [...] 3 troponins total (including troponin done in ED)[id number] 12:59:00 Test Item Value Reference Range Interpretation Comments MAGNESIUM (test code = MAG) 2.40 mg/dL 1.8-2.4 N COMMENTS: 3 troponins total (including troponin done in ED)[id number] 12:59:00 Test Item Value Reference Range Interpretation [...] total (including troponin done in ED)THROMBOPLASTIN TIME [id number] 12:46:00 Test Item Value Reference Range Interpretation Comments THROMBOPLASTIN TIME 42.0 Seconds 25.0-39.5 H Therape utic Range: PARTIAL (test code = 61.8-83 .8 Sec PTT) Effective 12/29/2013 COMMENTS: DRAW PTT 6 HOURS AFTER INITIATION OF [id number] 05:51:00 Test Item Value Reference Range Interpretation [...] (to prevent recurrent infar ct). THROMBOPLASTIN TIME [id number] 04:52:00 Test Item Value Reference Range Interpretation Comments THROMBOPLASTIN TIME 118.3 Seconds 25.0-39.5 H Therap eutic PARTIAL (test code = Range: 61.8-83.8 PTT) Sec Effect victoriano 12/29/2013 LIPOPROTEIN [id number] 04:18:00 Test Item Value Reference Range Interpretation Comments LIPOPROTEIN LDL 142 mg/dL 0-100 H <100 OPTIMAL 100-129 NEAR (test code = LDL) OPTIMAL/AB OVE [id number] 89 HIGH>HF=458 CAROLYN Y HIGH*Guidelines provided by the National Cholesterol EducationProgra m Adult Treatment Panel III [id number] 03:52:00 Test Item Value Reference Range Interpretation [...] may shorty y by method. CBC W/AUTO [id number] 03:37:00 Test Item Value Reference Range Interpretation [...] code = MDIFF) - XR CHEST 1 [id number] 03:24:00 FAX: Wesley Connor MD [phone] [place]: St: PRE Name: MARY FRAZIER [facility] : 1970 Age/S: 48/M [address] [place] [address] Bl Unit #: [id number] Loc: [address] [address] Phys: Wesley [facility]on [facility] [id number] Dis Date: Status: PRE ER PHONE #: [phone] Exam Date: 01/29/2019312 FAX #: [phone] Reason: Chest Pain EXAMS: CPT CODE: [id number] XR CHEST 1 V 06004 EXAM: CR, XR chest one view: 01/29/2019 [...] PAGE 1 Signed Report- XR CHEST 1 [id number] 02:12:00 Patient Name: MARY FRAZIER Unit No: [id number] EXAMS: CPT CODE: [id number] XR CHEST 1 V 25120 EXAM: CR, XR chest one view: 01/29/2019 [...] [id number] OrigPrint D/T: S: 01/29/2019 (021) [facility] NAME: MARY FRAZIER Radiology Department PHYS: Chhaya Cuadra [address] : 1970 AGE: 48 SEX: M [place], [place] [address]BIWG NO: [id number] LOC: F.ERS PHONE #: [phone] EXAM DATE: 01/29/2019 STATUS: REG ER FAX #: [phone] RAD NO: Page 1 Signed ReportLIPID PROFILE [...] 130-159 (BORDER LINE) >=160 (HIGH) CHEMISTRY 7 [id number] 02:00:00 Test Item Value Reference Range Interpretation [...] = CA) 9.2 mg/dL 8.4-10.2 N CPK-MB [id number] 02:00:00 Test Item Value Reference Range Interpretation Comments CREATINE KINASE (CK) (test code = 189 Units/L 26-192 N CK) CKMB (test code = CKMBT) 1.9 ng/mL 0-3.6 N RELATIVE % INDEX (test code = 1.005 0.0-5.0 N REL%) [id number] 02:00:00 Test Item Value Reference Range Interpretation Comments TROPONIN-I (test 3.276 ng/mL <0.056 HH RESULTS [place] LED TO code = TROPI) OBIEREAD BACK & CONFIRMED? Y F.LAB.LGL0 12/19 0200 TROPONIN I [id number] 01:35:00 Test Item Value Reference Range Interpretation Comments TROPONIN I RAPID (test code = 3.84 ng/mL 0.00-0.08 H TROPIRAP) CBC W/AUTO [id number] 01:29:00 Test Item Value Reference Range Interpretation [...]
[2023-03-28 08:20] LABS: Protime INR 1.84
--- NOTE | 2023-03-28 08:30 | ER ---
Nurse's Notes [facility] Name: Ata Majano Age: 52 yrs Sex: Male : 1970 Arrival Date: 03/28/2023 Time: 07:39 Bed IW1 Private MD: Diagnosis: Subtherapeutic INR;Essential (primary) hypertension Presentation: 03/28 07:47 Chief complaint: Patient states: "I am needing my INR level checked because I have a ld1 heart valve replacement." "[facility] but they take so long to get the results back.". Coronavirus screen: At this time, the client does not indicate any symptoms associated with coronavirus-19. Ebola Screen: No symptoms or risks identified at this time. Initial Sepsis Screen: Does the patient meet any 2 criteria? No. Patient's initial sepsis screen is negative. Does the patient have a suspected source of infection? No. Patient's initial sepsis screen is negative. Risk Assessment: Do you want to hurt yourself or someone else? Patient reports no desire to harm self or others. Onset of symptoms was March 28, 2023. 07:47 Method Of Arrival: Ambulatory ld1 07:47 Acuity: MELLO 4 ld1 Triage Assessment: 07:48 General: Appears in no apparent distress. comfortable, Behavior is calm, cooperative, ld1 appropriate for age. Pain: Denies pain. EENT: No signs and/or symptoms were reported regarding the EENT system. Neuro: Level of Consciousness is awake, alert, obeys commands, Oriented to person, place, time, situation. Cardiovascular: Capillary refill < 3 seconds Patient's skin is warm and dry. Respiratory: Airway is patent Respiratory effort is even, unlabored. GI: Abdomen is round non-distended. : No signs and/or symptoms were reported regarding the genitourinary system. Derm: No signs and/or symptoms reported regarding the dermatologic system. Musculoskeletal: No signs and/or symptoms reported regarding the musculoskeletal system. Historical: - Allergies: 07:48 No Known Allergies; ld1 - Home Meds: 07:48 warfarin 10 mg Oral tab MWF [Active]; warfarin 1 mg oral tablet [Active]; ld1 - PSHx: 07:48 Mechanical Heart Valve; Heart valve; ld1 - Immunization history:: Adult Immunizations up to date, Client reports receiving the 2nd dose of the Covid vaccine. - Social history:: Smoking status: Patient denies any tobacco usage or history of. Patient/guardian denies using alcohol. Screenin:[address] [facility] ED Fall Risk Assessment (Adult) History of falling in the last 3 months, ld1 including since admission No falls in past 3 months (0 pts). Abuse screen: Denies threats or abuse. Denies injuries from another. Nutritional screening: No deficits noted. Tuberculosis screening: No symptoms or risk factors identified. Assessment: 07:51 Reassessment: See triage assessment. ld1 Vital Signs: 07:47 Pulse 75; Resp 18; Pulse Ox 99% on R/A; Pain 0/10; ld1 07:48 BP 148 / 107; Temp 98.4(O); Weight 106.59 kg; Height 5 ft. 10 in. ; Pain 0/10; ld1 07:48 Body Mass Index 33.72 (106.59 kg, 177.8 cm) ld1 07:47 Pain Scale: Adult ld1 07:48 Pain Scale: Adult ld1 ED Course: 07:42 Patient arrived in ED. rg4 07:42 Alberto Ventura DO is Attending Physician. ms3 07:48 Triage completed. ld1 07:48 Arm band placed on right wrist. ld1 07:51 Patient has correct armband on for positive identification. Call light in reach. Pulse ld1 ox on. NIBP on. Door closed. Noise minimized. 07:51 No provider procedures requiring assistance completed. Patient did not have IV access ld1 during this emergency room visit. 08:12 PT-INR Sent. ld1 Administered Medications: No medications were administered Medication: 07:51 VIS not applicable for this client. ld1 Outcome: 08:30 Discharge ordered by . ms3 08:33 Discharged to home ambulatory. ld1 08:33 Condition: stable 08:33 Discharge instructions given to patient, Instructed on discharge instructions, follow up and referral plans. Demonstrated understanding of instructions, follow-up care. 08:34 Patient left the ED. ld1 Signatures: Genia Luna rg4 Alberto Ventura DO DO ms3 Asia Ventura RN RN ld1
--- NOTE | 2023-03-28 08:30 | EDPHYS ---
Physician Documentation [facility] Name: Ata Majano Age: 52 yrs Sex: Male : 1970 Arrival Date: 03/28/2023 Time: 07:39 Bed IW1 Private MD: ED Physician Alberto Ventura HPI: 03/28 07:55 This 52 yrs old Black Male presents to ER via Ambulatory with complaints of Needs Blood ms3 Checked. 07:55 52-year-old male with past medical history of heart valve replacement, hypertension ms3 presents for INR evaluation. Patient states he has mechanical heart valve and is needing his INR checked. Patient denies bleeding, bruising. Patient denies pain at this time. Historical: - Allergies: 07:48 No Known Allergies; ld1 - Home Meds: 07:48 warfarin 10 mg Oral tab MWF [Active]; warfarin 1 mg oral tablet [Active]; ld1 - PSHx: 07:48 Mechanical Heart Valve; Heart valve; ld1 - Immunization history:: Adult Immunizations up to date, Client reports receiving the 2nd dose of the Covid vaccine. - Social history:: Smoking status: Patient denies any tobacco usage or history of. Patient/guardian denies using alcohol. ROS: 07:55 Constitutional: Negative for fever, and chills. Neck: Negative for injury, pain, and ms3 swelling, Cardiovascular: Negative for chest pain, and palpitations. Respiratory: Negative for shortness of breath, cough, wheezing, and pleuritic chest pain, Abdomen/GI: Negative for abdominal pain, nausea, vomiting, diarrhea, and constipation, MS/Extremity: Negative for injury and deformity, Skin: Negative for injury, rash, and discoloration. 07:55 All other systems are negative. Exam: 07:55 Constitutional: This is a well developed, well nourished patient who is awake, alert, ms3 and in no acute distress. Head/Face: Normocephalic, atraumatic. Eyes: Pupils equal round and reactive to light, extra-ocular motions intact. Lids and lashes normal. Conjunctiva and sclera are non-icteric and not injected. Periorbital areas with no swelling, redness, or edema. Neck: Trachea midline, no cervical lymphadenopathy. Supple, full range of motion without nuchal rigidity, or vertebral point tenderness. No Meningismus. Chest/axilla: Normal chest wall appearance and motion. Nontender with no deformity. Cardiovascular: Regular rate and rhythm with a normal S1 and S2. No gallops, murmurs, or rubs. Normal PMI, no JVD. No pulse deficits. Respiratory: Lungs have equal breath sounds bilaterally, clear to auscultation and percussion. No rales, rhonchi or wheezes noted. No increased work of breathing, no retractions or nasal flaring. Abdomen/GI: Soft, non-tender, with normal bowel sounds. No distension or tympany. No guarding or rebound. No evidence of tenderness throughout. Skin: Warm, dry with normal turgor. Normal color with no rashes, no lesions, and no evidence of cellulitis. MS/ Extremity: Pulses equal, no cyanosis. Neurovascular intact. Full, normal range of motion. Vital Signs: 07:47 Pulse 75; Resp 18; Pulse Ox 99% on R/A; Pain 0/10; ld1 07:48 BP 148 / 107; Temp 98.4(O); Weight 106.59 kg; Height 5 ft. 10 in. ; Pain 0/10; ld1 07:48 Body Mass Index 33.72 (106.59 kg, 177.8 cm) ld1 07:47 Pain Scale: Adult ld1 07:48 Pain Scale: Adult ld1 MDM: 07:49 Patient medically screened. ms3 07:55 Differential Diagnosis Supratherapeutic INR versus normal INR. ms3 08:27 Data reviewed: vital signs, nurses notes, lab test result(s), and as a result, I will ms3 discharge patient. Care significantly affected by the following chronic conditions: Hypertension, Artificial heart valve. Counseling: I had a detailed discussion with the patient and/or guardian regarding: the historical points, exam findings, and any diagnostic results supporting the discharge/admit diagnosis, lab results, the need for outpatient follow up, to return to the emergency department if symptoms worsen or persist or if there are any questions or concerns that arise at home. ED course: Discussed INR results with patient and results faxed to patient's physician as requested. Patient to follow-up with his physician in 2 to 3 days. Patient understands agrees with plan. All questions were answered. Return precautions discussed include worsening symptoms, or any other concerns. Discussed with patient need to increase warfarin dose and he states he will contact his physician for Coumadin adjustments.. 03/28 07:50 Order name: PT-INR; Complete Time: 08:25 ms3 Administered Medications: No medications were administered Disposition Summary: 03/28/23 08:30 Discharge Ordered Location: Home ms3 Condition: Stable ms3 Diagnosis - Subtherapeutic INR ms3 - Essential (primary) hypertension ms3 Followup: ms3 - With: Private Physician - When: 2 - 3 days - Reason: Recheck today's complaints Discharge Instructions: - Discharge Summary Sheet ms3 - Warfarin Information ms3 - Vitamin K Foods and Warfarin ms3 Forms: - Medication Reconciliation Form ms3 - Thank You Letter ms3 - Antibiotic Education ms3 - Prescription Opioid Use ms3 Signatures: Dispatcher [employer] EDMS Alberto Ventura, DO ms3 Asia Ventura RN RN ld1 Corrections: (The following items were deleted from the chart) 08:31 08:27 ED course: Discussed INR results with patient and results faxed to patient's ms3 physician as requested. Patient to follow-up with his physician in 2 to 3 days. Patient understands agrees with plan. All questions were answered. Return precautions discussed include worsening symptoms, or any other concerns. ms3
[2023-03-28 08:38] VITALS: O2SAT 99
[2023-03-28 08:39] VITALS: BP 148/107; TEMP 98.4
== END 2023-03-28 08:34 | disposition home or self-care (01) ==
LOC: ER 07:39
DX: R79.1 Abnormal coagulation profile (principal); I10 Essential (primary) hypertension; Z79.01 Long term (current) use of anticoagulants; Z95.2 Presence of prosthetic heart valve
CPT/HCPCS: 36415; 85610; 99283

== ENCOUNTER 2023-09-05 08:03 | Emergency (ER) | payer OTHER ==
--- OUTSIDE RECORDS SUMMARY | 2023-09-05 08:07 | XMS REPORT | Continuity of Care Document ---
:1970 Author Organization [facility] t Address [address] [facility] [address] [place] [address] Care Team Providers Name Role Phone Unavailable Unavailable Unavailable Payers Payer Name Policy Type Policy Number Effective Date Expiration Date S ource Problems This patient has no known problems. Allergies, Adverse Reactions, Alerts Allergy Allergy Status Severity Reaction(s) Onset Inactive Treating Comm ents Source Name Type Date Date Clinician No Known DA Active U [facility] All[facility]ie 01-29 Clear s 00:00: Leonard 00 [facility] Medications This patient has no known medications. [...] NO COMMENTS: Daily while on HeparinCOAGULATION TIME [id number] 12:19:00 Test Item Value Reference Range Interpretation Comments COAGULATION TIME ACTIVATED (test 678 SECONDS 105-167 H code = ACT) COAGULATION TIME [id number] 12:19:00 Test Item Value Reference Range Interpretation Comments COAGULATION TIME ACTIVATED (test 177 SECONDS 105-167 H code = ACT) B-TYPE NATRIURETIC [id number] 10:01:00 Test Item Value Reference Range Interpretation Comments B-TYPE NATRIURETIC PEPTIDE (test 588.2 PG/ML 0-100 H code = BNP) PROTHROMBIN [id number] 06:18:00 Test Item Value Reference Range Interpretation [...] (to prevent recurrent infar ct). CBC W/AUTO [id number] 06:04:00 Test Item Value Reference Range Interpretation [...] MDIFF) COMMENTS: Daily while on HeparinCOMPREHENSIVE METABOLIC [id number] 06:04:00 Test Item Value Reference Range Interpretation [...] 20-125 H TOTAL (test code = ALKP) [id number] 06:04:00 Test Item Value Reference Range Interpretation Comments MAGNESIUM (test code = MAG) 2.50 mg/dL 1.8-2.4 H BASIC METABOLIC [id number] 18:52:00 Test Item Value Reference Range Interpretation [...] mg/dL 8.0-10.5 N CA) - LUZ VEIN [id number] 08:40:00 Name: MARY FRAZIER [facility] [place] : 1970 Age/S: 48 / M [address] [place] [address] Unit #: [id number] Loc: [place] [address] Phys: Lucinda Kilgore MD Acct: [id number] Dis Date: Status: ADM IN PHONE #: [phone] Exam Date: 01/31/2019812 FAX #: [phone] Reason: DVT EXAMS: CPTCODE: [id number] [facility] VEIN [place] [id number] PROCEDURE: BILATERAL LOWER EXTREMITY VENOUS ULTRASOUND INDICATION: [...] PAGE 1 Signed Report- XR CHEST 1 [id number] 07:53:00 FAX: Rolanda Phan MD [phone] [place]: St: ADM FAX: Meghna Au [phone] ------ Name: [facility]ARY [facility] : 1970 Age/S: 48/M [address] [place] [address] Blvd Unit #: [id number] Loc: [id number] [place] [address] Phys: Rolanda Ramirez MD Acct: [id number] Dis Date: Status: ADM IN PHONE #: [phone] Date: 01/31/2019 0750 FAX #: [phone] Reason: R/O PNA EXAMS: CPT CODE: [id number] XR CHEST 1 V 34705 CHEST, SINGLE VIEW HISTORY: Myocardial infarction Comparison [...] 01/31/2019 (0756) PAGE 1 Signed ReportUR PROTEIN [id number] 07:14:00 Test Item Value Reference Range Interpretation [...] code = hour urine cayden ection. No [id number]) Reference Range s have been established for 12 hour urinecollection for this test. UR VOLUME (test 1750 mL code = VOL) UR PROTEIN [id number] 06:56:00 Test Item Value Reference Range Interpretation Comments UR PROTEIN RANDOM (test code = PROTU) mg/dL UR VOLUME (test code = VOL) 1750 mL BASIC METABOLIC [id number] 06:43:00 Test Item Value Reference Range Interpretation [...] code = 8.9 mg/dL 8.0-10.5 N CA) [id number] 06:43:00 Test Item Value Reference Range Interpretation Comments PHOSPHOROUS (test code = PHOS) 2.7 mg/dL 2.5-4.9 N [id number] 06:43:00 Test Item Value Reference Range Interpretation Comments MAGNESIUM (test code = MAG) 2.50 mg/dL 1.8-2.4 H CBC W/AUTO [id number] 06:28:00 Test Item Value Reference Range Interpretation [...] any concentrations <2 ng/mL are obtained. URINALYSIS [id number] 16:16:00 Test Item Value Reference Range Interpretation [...] TRACE /HPF NONE = AMORU) UA CULT [id number] 16:16:00 Test Item Value Reference Range Interpretation Comments UA CULTURE NEEDED? NO, WBC<10 Culture Chk Criteria not met, (test code = Criteria Urine Culture UACULT) cancelled. - US RETROPERITONEAL [id number] 15:32:00 Name: MARY FRAZIER [facility] : 1970 Age/S: 48 / M [address] [place] [address] Unit #: [id number] Loc: [place] [address] Phys: Lucinda Kilgore MD Acct: [id number] Dis Date: Status: ADM IN PHONE #: [phone] Exam Date: 01/30/2019 1455 FAX #: [phone] Reason: kideny EXAMS: CPT CODE: [id number] [place] RETR[place]ONEAL COM [id number] PROCEDURE: RENAL ULTRASOUND INDICATION: Acute kidneyinjury. COMPARISON: [...] appearance. IMPRESSION: Normal renal ultrasound. END REPORT [id number] at 1532 Reported and signed by: Gerard Casillas M.D. CC: Lucinda Kilgore MD; Meghna Au MD Technologist: Holli Chahal RDMS(OB)(BR) Trnscb Date/Time: 01/30/2019 (1532Lisa Bee.RTB Orig Print D/T: S: 01/30/2019 (1535) Probe: PAGE 1 Signed ReportUR PROTEIN/CREATININE [id number] 15:26:00 Test Item Value Reference Range Interpretation [...] 0.51 E RATIO (test code = P/CRATIO) [id number] 15:06:00 Test Item Value Reference Range Interpretation Comments D-DIMER (test 2178 ng/mlFEU <=500 HH THROMBOSIS A ND/OR code = PULMONARY EMBOL ISM AND THE DDIMER) CLINICAL CUT- O FF VALUE FOR EXCLUSION (500 ng/mL FEU) OF THESE CONDIT IONSIS VALIDATED BY E SENIOR ENGINEERING TEAM LEADER OF THE METHOD. A NEGATIVE D-DI BLAIRE RESULT WHEN COMBINED W ITH A CLINICALASSESSM ENT OF LOW PRETEST PROBABI LITY HAS BEEN SHOWN TO H AVEA HIGH NEGATIVE PREDIC TIVE VALUE OF DVT OR PE. D -DIMER VALUES >500 ng/ mL FEU ARE NOT DIAGNOSTIC FOR DVT, PEor DIC WITHOU T OTHER CONFIRMATORY TE STS AND APPROPRIATECLIN ICAL EUALUATIONS. DRUGS OF ABUSE SCREEN [id number] 15:01:00 Test Item Value Reference Range Interpretation [...] non-medical pur poses. - XR CHEST 1 [id number] 12:52:00 FAX: Rolanda Phan MD [phone] [place]: St: ADM FAX: Meghna Auin [phone] ------ Name: MARY FRAZIER [facility] : 1970 Age/S: 48/M [address] [place] [address] Bl Unit #: [id number] Loc: [address] [place] [address] Phys: Rolanda Ramirez MD Acct: [id number] Dis Date: Status: ADM IN PHONE #: [phone] Date: 01/30/2019 1247 FAX #: [phone] Reason: BLOOD TINGED SPUTUM EXAMS: CPT CODE: [id number] XR CHEST 1 V 37338 1 VIEW CXR. PORTABLE EXAM 11:42 AM HISTORY: Blood tinged sputum. COMPARISON: 01/29/2019 chest x-ray. The lungs are clear with normal pulmonary vasculature. Cardiomediastinal silhouette normal. No pleural abnormality. Bony thorax intact. IMPRESSION: Normal exam. END OF IMPRESSION SL: [id number] at 1252 Reported and signed by: Gerard Casilals M.D. CC: Rolanda Ramirez MD;Meghna Au MD Technologist: Niharika Berger RT(R) Trnscrd Date/Time/By: 01/30/2019 (8506): By: Elissa Orig Print D/T: S: 01/30/2019 (4306) PAGE 1 Signed [id number] 06:11:00 Test Item Value Reference Range Interpretation Comments HGBA1C% (test code = HGBA1C%) 5.9 %A1C 4.8-6.0 N COMPREHENSIVE METABOLIC [id number] 06:02:00 Test Item Value Reference Range Interpretation [...] (test code = LDL) NEAR OPTIM AL/ABOVE [id number] 89 HIGH>JO=925 CAROLYN Y HIGH*Guidelines provided by the National Choles terol EducationProgra m Adult Treatment Panel III [id number] 06:02:00 Test Item Value Reference Range Interpretation Comments PHOSPHOROUS (test code = PHOS) 3.2 mg/dL 2.5-4.9 N [id number] 06:02:00 Test Item Value Reference Range Interpretation Comments MAGNESIUM (test code = MAG) 2.50 mg/dL 1.8-2.4 H T4 [id number] 06:02:00 Test Item Value Reference Range Interpretation Comments T4 FREE (test code = T4F) 1.1 ng/dL 0.77-1.61 N THYROID STIMULATING [id number] 06:02:00 Test Item Value Reference Range Interpretation Comments THYROID STIMULATING 0.55 0.42-5.47 N Results in HORMONE (test code = TSH) mi lli-International Units/mL CBC W/AUTO [id number] 05:38:00 Test Item Value Reference Range Interpretation [...] be done morning of Heart CathVITAMIN D [id number] 23:55:00 Test Item Value Reference Range Interpretation Comments VITAMIN D 25-HYDROXY (test code = 10.1 ng/mL 30-100 L VITD25) CPK-MB [id number] 22:46:00 Test Item Value Reference Range Interpretation [...] TO A FALSELY ELEVATED INDEX. B-TYPE NATRIURETIC [id number] 19:27:00 Test Item Value Reference Range Interpretation Comments B-TYPE NATRIURETIC PEPTIDE (test 865.0 PG/ML 0-100 H code = BNP) CPK-MB [id number] 18:59:00 Test Item Value Reference Range Interpretation [...] = HGBA1C%) 6.0 %A1C 4.8-6.0 N URINALYSIS [id number] 15:01:00 Test Item Value Reference Range Interpretation [...] 4+ /LPF NONE SEEN A UA CULT [id number] 15:01:00 Test Item Value Reference Range Interpretation Comments UA CULTURE NEEDED? NO, WBC<10 Culture Chk Criteria not met, (test code = Criteria Urine Culture UACULT) cancelled. BASIC METABOLIC [id number] 12:59:00 Test Item Value Reference Range Interpretation [...] 3 troponins total (including troponin done in ED)[id number] 12:59:00 Test Item Value Reference Range Interpretation Comments MAGNESIUM (test code = MAG) 2.40 mg/dL 1.8-2.4 N COMMENTS: 3 troponins total (including troponin done in ED)[id number] 12:59:00 Test Item Value Reference Range Interpretation [...] total (including troponin done in ED)THROMBOPLASTIN TIME [id number] 12:46:00 Test Item Value Reference Range Interpretation Comments THROMBOPLASTIN TIME 42.0 Seconds 25.0-39.5 H Therape utic Range: PARTIAL (test code = 61.8-83 .8 Sec PTT) Effective 12/29/2013 COMMENTS: DRAW PTT 6 HOURS AFTER INITIATION OF [id number] 05:51:00 Test Item Value Reference Range Interpretation [...] (to prevent recurrent infar ct). THROMBOPLASTIN TIME [id number] 04:52:00 Test Item Value Reference Range Interpretation Comments THROMBOPLASTIN TIME 118.3 Seconds 25.0-39.5 H Therap eutic PARTIAL (test code = Range: 61.8-83.8 PTT) Sec Effect victoriano 12/29/2013 LIPOPROTEIN [id number] 04:18:00 Test Item Value Reference Range Interpretation Comments LIPOPROTEIN LDL 142 mg/dL 0-100 H <100 OPTIMAL 100-129 NEAR (test code = LDL) OPTIMAL/AB OVE [id number] 89 HIGH>UL=924 CAROLYN Y HIGH*Guidelines provided by the National Cholesterol EducationProgra m Adult Treatment Panel III [id number] 03:52:00 Test Item Value Reference Range Interpretation [...] may shorty y by method. CBC W/AUTO [id number] 03:37:00 Test Item Value Reference Range Interpretation [...] code = MDIFF) - XR CHEST 1 [id number] 03:24:00 FAX: Wesley Connor MD [phone] [place]: St: PRE Name: MARY FRAZIER [facility] : 1970 Age/S: 48/M [address] [place] [address] Bl Unit #: [id number] Loc: [address] [address] [id number] Dis Date: Status: PRE ER PHONE #: [phone] Exam Date: 01/29/2019312 FAX #: [phone] Reason: Chest Pain EXAMS: CPT CODE: [id number] XR CHEST 1 V 78539 EXAM: CR, XR chest one view: 01/29/2019 [...] PAGE 1 Signed Report- XR CHEST 1 [id number] 02:12:00 Patient Name: MARY FRAZIER Unit No: [id number] EXAMS: CPT CODE: [id number] XR CHEST 1 V 60537 EXAM: CR, XR chest one view: 01/29/2019 [...] [id number] OrigPrint D/T: S: 01/29/2019 (021) [facility] NAME: MARY FRAZIER Radiology Department PHYS: Chhaya Cuadra [address] : 1970 AGE: 48 SEX: M [place], [place] [address]XPGD NO: [id number] LOC: F.ERS PHONE #: [phone] EXAM DATE: 01/29/2019 STATUS: REG ER FAX [...] 130-159 (BORDER LINE) >=160 (HIGH) CHEMISTRY 7 [id number] 02:00:00 Test Item Value Reference Range Interpretation [...] = CA) 9.2 mg/dL 8.4-10.2 N CPK-MB [id number] 02:00:00 Test Item Value Reference Range Interpretation Comments CREATINE KINASE (CK) (test code = 189 Units/L 26-192 N CK) CKMB (test code = CKMBT) 1.9 ng/mL 0-3.6 N RELATIVE % INDEX (test code = 1.005 0.0-5.0 N REL%) [id number] 02:00:00 Test Item Value Reference Range Interpretation Comments TROPONIN-I (test 3.276 ng/mL <0.056 HH RESULTS [place] LED TO code = TROPI) OBIEREAD BACK & CONFIRMED? Y F.LAB.LGL0 12/19 0200 TROPONIN I [id number] 01:35:00 Test Item Value Reference Range Interpretation Comments TROPONIN I RAPID (test code = 3.84 ng/mL 0.00-0.08 H TROPIRAP) CBC W/AUTO [id number] 01:29:00 Test Item Value Reference Range Interpretation [...]
--- NOTE | 2023-09-05 10:02 | RAD REPORT ---
EXAM DESCRIPTION: US - Scrotum Testicles - 09/05/2023 9:14 am CLINICAL HISTORY: SWELLING COMPARISON: No comparisons TECHNIQUE: Sonographic grayscale and color flow images of the scrotum were obtained. FINDINGS: The right testicle measures 4.1 x 2.5 x 3.4 cm. No intratesticular masses or evidence of t esticular torsion. Diffuse heterogeneity of the right testicular parenchyma. Diffuse hypervascularity oblique right testis and epididymis. The left testicle measures 4.2 x 1.8 x 2.5 cm. No intratesticular masses or evidence of testicular to rsion. Incidentally noted left epididymal small ovoid cyst measuring 4 millimeter. Trace right and moderate left hydroceles, with thin septations and debris. IMPRESSION: Mild right testicular enlargement with inflammatory changes of the testicular parenchyma and right epididymis with hypervascularity. Findings suggest right epididymo-orchitis. Trace right and moderate left hydroceles with thin septations and debris.
--- NOTE | 2023-09-05 10:22 | EDPHYS ---
Physician Documentation [facility] Name: Ata Majano Age: 52 yrs Sex: Male : 1970 Arrival Date: 09/05/2023 Time: 08:03 Bed 5 Private MD: ED Physician Enzo Lee HPI: 09/05 08:15 This 52 yrs old Black Male presents to ER via Ambulatory with complaints of Testicular jh7 Pain. 08:15 The patient presents with scrotal pain, of the right side, with swelling, with jh7 erythema. Onset: The symptoms/episode began/occurred 3 day(s) ago. Associated signs and symptoms: Pertinent positives: hematuria, Pertinent negatives: abdominal pain, dysuria, fever, nausea, vomiting. Patient denies injury. He reports that he has a history of hypertension and is not sexually active.. 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 - Social history:: Smoking status: Patient denies any tobacco usage or history of. ROS: 08:15 Constitutional: Negative for fever, chills, and weight loss, Eyes: Negative for injury, jh7 pain, redness, and discharge, Neck: Negative for injury, pain, and swelling, Cardiovascular: Negative for chest pain, palpitations, and edema, Respiratory: Negative for shortness of breath, cough, wheezing, and pleuritic chest pain, Abdomen/GI: Negative for abdominal pain, nausea, vomiting, diarrhea, and constipation, Back: Negative for injury and pain, MS/Extremity: Negative for injury and deformity, Skin: Negative for injury, rash, and discoloration, Neuro: Negative for headache, weakness, numbness, tingling, and seizure, 08:15 : Positive for testicular pain of the right testicle, Negative for urinary symptoms, 08:15 All other systems are negative, Exam: 08:15 Constitutional: This is a well developed, well nourished patient who is awake, alert, jh7 and in no acute distress. Head/Face: Normocephalic, atraumatic. Cardiovascular: Regular rate and rhythm with a normal S1 and S2. No gallops, murmurs, or rubs. Normal PMI, no JVD. No pulse deficits. Respiratory: Lungs have equal breath sounds bilaterally, clear to auscultation and percussion. No rales, rhonchi or wheezes noted. No increased work of breathing, no retractions or nasal flaring. Abdomen/GI: Soft, non-tender, with normal bowel sounds. No distension or tympany. No guarding or rebound. No evidence of tenderness throughout. Back: No spinal tenderness. No costovertebral tenderness. Full range of motion. Skin: Warm, dry with normal turgor. Normal color with no rashes, no lesions, and no evidence of cellulitis. MS/ Extremity: Pulses equal, no cyanosis. Neurovascular intact. Full, normal range of motion. Neuro: Awake and alert, GCS 15, oriented to person, place, time, and situation. Motor strength 5/5 in all extremities. Sensory grossly intact. Normal gait. 08:15 : CVA tenderness, is absent, Male external genitalia: erythema, of the right testicle is seen, penile discharge, is absent, swelling, testicle, that is moderate, Bladder: is normal, non-distended, non-tender, Vital Signs: 08:18 BP 124 / 90; Pulse 85; Resp 16; Temp 98.7(O); Pulse Ox 96% on R/A; Weight 102.06 kg; hb Height 5 ft. 10 in. ; Pain 8/10; 08:30 BP 115 / 97; Pulse 73; Resp 16; Pulse Ox 100% ; ko1 10:30 BP 118 / 88; Pulse 75; Resp 16; Pulse Ox 99% ; ko1 08:18 Body Mass Index 32.28 (102.06 kg, 177.8 cm) hb 08:18 Pain Scale: Adult hb MDM: 08:12 Patient medically screened. [facility] 10:15 Differential diagnosis: UTI, prostatitis, urethritis, Prostatitis, testicular torsion, jh7 orchitis, epididymitis, scrotal hematoma. Data reviewed: vital signs, nurses notes, radiologic studies, ultrasound. I considered the following discharge prescriptions or medication management in the emergency department Medications were administered in the Emergency Department. See MAR. Care significantly affected by the following chronic conditions: Hypertension. Counseling: I had a detailed discussion with the patient and/or guardian regarding the historical points, exam findings, and any diagnostic results supporting the discharge/admit diagnosis, the need for outpatient follow up, a urologist, to return to the emergency department if symptoms worsen or persist or if there are any questions or concerns that arise at home. ED course: Patient declined urine sample and stated that he was ready to leave. His ultrasound report returned and informed him that I would like to give him a dose of IV antibiotics before leaving. The patient declined. Agreed to give Rocephin IM and prescribed 10 days of p.o. Levaquin. Strict ER return precautions given. Patient reported that he had not had sexual activity in 10 years but we will give Rocephin as a precaution.. 09/05 08:16 Order name: Scrotum Testicles; Complete Time: 10:11 [facility] Administered Medications: 10:24 Drug: Rocephin (cefTRIAXone) IM 500 mg IM once Route: IM; Site: left gluteus; ko1 Disposition: 10:37 Co-signature as Attending Physician, Enzo Lee MD I reviewed the patient's care rt provided by the Advanced Practice Provider and agree with the diagnosis and treatment plan. Disposition Summary: 09/05/23 10:21 Discharge Ordered Notes: Location: Home [facility] Problem: new [facility] Symptoms: are unchanged [facility] Condition: Stable [facility] Diagnosis - Epididymo-orchitis [facility] Followup: [facility] - With: Private Physician - When: 2 - 3 days - Reason: Recheck today's complaints Discharge Instructions: - Discharge Summary Sheet [facility] - Epididymitis [facility] - Orchitis [facility] Forms: - Medication Reconciliation Form [facility] - Thank You Letter [facility] - Antibiotic Education [facility] - Patient Portal Instructions [facility] - Leadership Thank You Letter [facility] Prescriptions: - levofloxacin 500 mg Oral tablet - take 1 tablet ORAL route once daily for 14 days; 14 tablet; Refills: 0, Product [facility] Selection Permitted Signatures: Dispatcher [employer] EDShanika Tovar RN RN Anum Mehta FNP FNP [facility] Elinor Whalen RN RN ko1 Enzo Lee MD MD rt Corrections: (The following items were deleted from the chart) 08:20 08:19 Home Meds: unknown HTN medication 1 mg Oral tablet; hb hb
--- NOTE | 2023-09-05 10:22 | ER ---
Nurse's Notes [facility] Name: Ata Majano Age: 52 yrs Sex: Male : 1970 Arrival Date: 09/05/2023 Time: 08:03 Bed 5 Private MD: Diagnosis: Epididymo-orchitis Presentation: 09/05 08:18 Chief complaint: Testicular pain and swelling x 4 days, blood in urine x 2 days. Denies hb injury/pain with urination. Coronavirus screen: At this time, the client does not indicate any symptoms associated with coronavirus-19. Ebola Screen: No symptoms or risks identified at this time. Initial Sepsis Screen: Does the patient meet any 2 criteria? No. Patient's initial sepsis screen is negative. Does the patient have a suspected source of infection? No. Patient's initial sepsis screen is negative. Risk Assessment: Do you want to hurt yourself or someone else? Patient reports no desire to harm self or others. Onset of symptoms was September 02, 2023. 08:18 Method Of Arrival: Ambulatory hb 08:18 Acuity: MELLO 3 hb Historical: - Allergies: 08:19 No Known Allergies; hb - Home Meds: 08:19 warfarin 10 mg Oral tab MWF [Active]; warfarin 1 mg Oral tablet [Active]; unknown HTN hb med [Active]; - PMHx: 08:19 Hypertension; hb - PSHx: 08:19 heart valve; Mechanical Heart Valve; hb - Immunization history:: Adult Immunizations up to date. - Social history:: Smoking status: Patient denies any tobacco usage or history of. Screenin:30 [facility] ED Fall Risk Assessment (Adult) History of falling in the last 3 months, ko1 including since admission No falls in past 3 months (0 pts) Confusion or Disorientation No (0 pts) Intoxicated or Sedated No (0 pts) Impaired Gait No (0 pts) Mobility Assist Device Used No (0 pt) Altered Elimination No (0 pt) Score/Fall Risk Level 0 - 2 = Low Risk Oriented to surroundings, Maintained a safe environment, Educated pt \T\ family on fall prevention, incl call for assistance when getting out of bed, Assessed \T\ reinforced patient's understanding of fall precautions, Provided non-skid footwear, Hourly rounding (assess needs \T\ fall precautionary measures) done, Used ambulatory aids as needed (educated on \T\ assisted with), Used gait belt as appropriate. Abuse screen: Denies threats or abuse. Denies injuries from another. Nutritional screening: No deficits noted. Tuberculosis screening: No symptoms or risk factors identified. Assessment: 08:30 General: Appears in no apparent distress. uncomfortable, Behavior is calm, cooperative, ko1 appropriate for age. Pain: Complains of pain in right testicle. Neuro: No deficits noted. Cardiovascular: No deficits noted. Respiratory: No deficits noted. GI: No deficits noted. : No deficits noted. EENT: No deficits noted. Derm: No deficits noted. Musculoskeletal: No deficits noted. Vital Signs: 08:18 BP 124 / 90; Pulse 85; Resp 16; Temp 98.7(O); Pulse Ox 96% on R/A; Weight 102.06 kg; hb Height 5 ft. 10 in. ; Pain 8/10; 08:30 BP 115 / 97; Pulse 73; Resp 16; Pulse Ox 100% ; ko1 10:30 BP 118 / 88; Pulse 75; Resp 16; Pulse Ox 99% ; ko1 08:18 Body Mass Index 32.28 (102.06 kg, 177.8 cm) hb 08:18 Pain Scale: Adult hb ED Course: 08:10 Patient arrived in ED. gm2 08:10 [facility] jh7 08:10 Enzo Lee MD is Attending Physician. jh7 08:11 Elinor Whalen, RN is Primary Nurse. ko1 08:19 Triage completed. hb 08:21 Arm band placed on. hb 08:30 Patient has correct armband on for positive identification. Bed in low position. Call ko1 light in reach. Side rails up X2. Provided Education on: na. Pulse ox on. NIBP on. Door closed. Noise minimized. Lights dimmed. Warm blanket given. 08:56 US Scrotum Testicles In Process Unspecified. EDMS 10:13 No provider procedures requiring assistance completed. Patient did not have IV access ko1 during this emergency room visit. Administered Medications: 10:24 Drug: Rocephin (cefTRIAXone) IM 500 mg IM once Route: IM; Site: left gluteus; ko1 Medication: 10:13 VIS not applicable for this client. ko1 Outcome: 10:21 Discharge ordered by . kandice 10:30 Discharged to home ambulatory, ko1 10:30 Condition: good 10:30 Discharge instructions given to patient, Instructed on discharge instructions, follow up and referral plans. medication usage, Demonstrated understanding of instructions, follow-up care, medications, Prescriptions given X 1, 10:31 Patient left the ED. ko1 Signatures: Dispatcher [employer] EDMS Shanika Godoy RN RN Anum Lopez, DETAIL MA[employer]ER [employer] FITTER DETAIL MAKER [employer] FITTER 7 Elinor Whalen RN RN ko1 Manuela Heard 2 Corrections: (The following items were deleted from the chart) 08:20 08:19 Home Meds: unknown HTN medication 1 mg Oral tablet; hb hb
[2023-09-05] MEDS ORDERED: LIDOCAINE 1% MPF 2 ML AMPULE ONE (10:33)
[2023-09-05] MEDS ORDERED: CEFTRIAXONE 500 MG/VIAL ONE (10:33)
[2023-09-05 10:36] VITALS: TEMP 98.7
[2023-09-05 10:39] VITALS: BP 118/88; O2SAT 99
== END 2023-09-05 10:31 | disposition home or self-care (01) ==
LOC: ER 08:03
DX: N45.3 Epididymo-orchitis (principal); I10 Essential (primary) hypertension; Z79.01 Long term (current) use of anticoagulants; Z95.2 Presence of prosthetic heart valve
CPT/HCPCS: 76870; 96372; 99284